=== PATIENT | female | born 1935 | race Caucasian/White ===

== ENCOUNTER 2019-12-17 14:04 | Outpatient (CLI) | payer MEDICARE, SELFPAY ==
--- NOTE | ~2019-12-17 | CT_ITS ---
EXAMINATION: CT brain wo con DATE: 12/17/2019 14:21 INDICATION: Unsteady gait TECHNIQUE: Computed tomography (CT) of the head was performed without intravenous contrast. The mA wa s adjusted according to patient size. Iterative reconstruction technique was employed. Exam dose: 52 9.67 mGy-cm total exam DLP. 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 No interval new infarc t is noted. No intracranial mass lesion or hemorrhage, midline shift or mass effects. There is moderate cerebral volume loss consistent with patient age. No subdural or epidural hematoma. There are bilateral carotid siphon as well as vertebral and basilar artery calcifications. There is n onspecific diminished attenuation cerebral white matter, likely due to chronic small vessel ischemic changes. No subdural or epidural hematoma. There is some patchy soft tissue thickening of the ethmoid air cells bilaterally. The included parana evert sinuses and the mastoid air cells are normally developed and aerated otherwise. No fracture or bone destruction of the cranial vault. 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 Reviewed, dictated and finalized at location A. 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
== END 2019-12-17 14:05 | disposition home or self-care (01) ==
PROVIDERS: PCP Family Medicine; Visit Provider Family Medicine
DX: R26.81 Unsteadiness on feet (principal)
CPT/HCPCS: 70450

== ENCOUNTER 2020-02-04 07:16 | Emergency (ER) | payer MEDICARE, SELFPAY ==
--- NOTE | ~2020-02-04 | US_ITS ---
EXAMINATION: US venous doppler [facility] EXAM DATE: 02/04/2020 08:24 INDICATION: Left leg pain, numbness, tingling. TECHNIQUE: Multiple grayscale, color flow and Doppler images of the left lower extremity deep venous system were obtained and reviewed. Comparison is made to prior examination from 04/23/2011. FINDINGS: The left common femoral, femoral and profunda veins demonstrate normal color flow, respirat ory variation, augmentation and compressibility. Compressibility, color flow confirmed within the le ft popliteal, posterior tibial, peroneal, and greater saphenous veins. IMPRESSION: 1. No left lower extremity deep venous thrombosis. Reviewed, dictated and finalized at location [facility].
--- NOTE | ~2020-02-04 | US_ITS ---
EXAMINATION: US arterial ankle brachial ind EXAM DATE: 02/04/2020 08:24 INDICATION: Left leg pain, numbness, tingling. TECHNIQUE: Segmental pressures and plethysmographic and Doppler waveforms of the brachial and lower e xtremity arteries were obtained. There is no prior study for comparison. FINDINGS: Right and left brachial artery pressures of 157 mm Hg and 153 mm Hg, respectively, are concordant (no rmal difference <= 30 mmHg). RIGHT LEG: The ankle-brachial index (YAQUELIN) is 1.04 (normal >= 0.9-1). The great toe-brachial index (TBI) is 0.61 (normal >= 0.65). The lower extremity ratios, segmental pressure gradients as follows; Dorsalis pedis: 1.04 (164 mmHg). Posterior tibial: 0.92 (144 mmHg). (Normal gradients <= 20-30 mmHg between adjacent levels on the same leg or the same levels on the two legs). Arterial waveforms are biphasic. LEFT LEG: The ankle-brachial index (YAQUELIN) is 0.97 (normal >= 0.9-1). The great toe-brachial index (TBI) is 0.38 (normal >= 0.65). The lower extremity ratios, segmental pressure gradients as follows; Dorsalis pedis: 0.97 (153 mmHg). Posterior tibial: 0.96 (151 mmHg). (Normal gradients <= 20-30 mmHg between adjacent levels on the same leg or the same levels on the two legs). Arterial waveforms are diminished compared to contralateral side and only minimally biphasic. IMPRESSION: 1. Right ankle-brachial index 1.04, normal. 2. Left ankle-brachial index 0.97, normal. 3. Moderately decreased left toe brachial index with dampened waveform. Reviewed, dictated and finalized at location B.
[2020-02-04 07:25] VITALS: BP 143/83; PULSE 63; RESP 11; TEMP 36.6; O2SAT 100
--- NOTE | 2020-02-04 07:37 | ED.EXTPRO ---
HPI - Extremity Problem General Chief complaint: Extremity Problem,Nontraumatic Stated complaint: L leg pain Time Seen by Provider: 02/04/20 07:18 Source: patient Mode of arrival: ambulatory Limitations: no limitations History of Present Illness HPI Narrative: This patient is a 84 year old female who presents for evaluation of left leg pain. She states starting Saturday she developed burning pain to front of her left lower leg. She states this pain seems to occur when she walks, and she does not currently have the pain now. She is concerned about a blood clot as she has family history of blood clots. She has no history of DVT or PE. She denies leg swelling, chest pain, shortness of breath, dizziness, leg numbness or tingling. She has noticed that she is getting more varicose veins over past 1 month. Related Data Home Medications Medication Instructions Recorded Confirmed biotin 1,000 mcg chewable tablet 1,000 mcg PO DAILY 12/15/19 02/04/20 calcium carbonate 600 mg calcium 600 mg PO DAILY 12/15/19 02/04/20 (1,500 mg) tablet Allergies Allergy/AdvReac Type Severity Reaction Status Date / Time chlorpheniramine Allergy Unknown Unknown Verified 02/04/20 07:37 dexchlorpheniramine Allergy Unknown Unknown Verified 02/04/20 07:37 hyoscyamine Allergy Unknown Unknown Verified 02/04/20 07:37 phenylephrine Allergy Unknown Unknown Verified 02/04/20 07:37 sulfamethizole Allergy Unknown Nausea and Verified 02/04/20 07:37 Vomiting aspartame AdvReac Unknown DIARRHEA/ Verified 02/04/20 07:37 UPSET STOMACH naproxen AdvReac Unknown DIARRHEA Verified 02/04/20 07:37 Review of Systems Review of Systems: All systems reviewed & are unremarkable except as noted in HPI and below Constitutional: Constitutional: Denies chills, Denies fever(s) and Denies weakness Cardiovascular: Cardiovascular: Denies chest pain Respiratory: Respiratory: Denies cough and Denies dyspnea Neurologic: Denies headache(s), Denies focal weakness, Denies numbness and Denies weakness PMFSH Past Medical History Medical History History of CVA (cerebrovascular accident) Hyperlipidemia Hypertension Hypothyroidism (acquired) Irritable bowel syndrome with diarrhea Osteopenia Varicose vein of leg Social History Social History Smoking status: Never smoker Second hand tobacco smoke exposure: No Alcohol intake: current Gender identity (if verbalized by the patient): Female Exam Narrative: Exam Narrative: GENERAL: Well-appearing, well-nourished, and in no acute distress. HEAD: Normocephalic, atraumatic EYES: PERRLA and EOMI, conjunctiva clear without discharge NECK: Supple, without lymphadenopathy or mass RESPIRATORY: No respiratory distress, Airway patent, EXTREMITIES: No edema, normal strength with full range of motion. SKIN: Warm, dry, normal color without rash NEURO: Alert and oriented x3. CN 2-12 grossly intact. No focal deficits. PSYCH: Normal mood and affect. Extrem: General: no pedal edema Right lower extremity: lower leg Details: other (varicose veins) Left lower extremity: lower leg Details: other (varicose veins); no erythema and no tenderness Other: palpable pedal pulse to right foot, strong signal doppler to pedal pulse on left but not palpable Course Reevaluation(s) Reevaluation #1: Patient has no pain. I Discussed she has some diminished blood flow to left foot compared to right so she should follow up with PCP for possible vascular referral or evaluation . Date: 02/04/20 Time: 09:04 Vital Signs Vital signs: Vital Signs Temperature 97.8 F 02/04/20 07:25 Pulse Rate 63 02/04/20 07:25 Respiratory Rate 11 L 02/04/20 07:25 Blood Pressure 143/83 H 02/04/20 07:25 Pulse Oximetry 100 02/04/20 07:25 Temperature 97.8 F 02/04/20 07:25 Pulse Rate 63 02/04/20 07:25 Respirator
== END 2020-02-04 09:32 | disposition home or self-care (01) ==
PROVIDERS: Emergency Provider General Practice; PCP Family Medicine
DX: M79.662 Pain in left lower leg (principal); I73.9 Peripheral vascular disease, unspecified; Z86.73 Personal history of transient ischemic attack (TIA), and cerebral infarction without residual deficits; E78.5 Hyperlipidemia, unspecified; I10 Essential (primary) hypertension; E03.9 Hypothyroidism, unspecified; K58.0 Irritable bowel syndrome with diarrhea; M85.80 Other specified disorders of bone density and structure, unspecified site
CPT/HCPCS: 93922; 93971; 99284

== ENCOUNTER 2020-07-14 10:02 | Outpatient (CLI) | payer MEDICARE, SELFPAY ==
--- NOTE | ~2020-07-14 | DEXA_ITS ---
Bone Density Report Name: Maribel Fink Age: 85 Sex: Female Ethnicity: White Date of : 1935 Indication: osteopenia; parental hip fracture; prior fracture; Referring Provider: Remedios Ruiz Study: Bone densitometry was performed. Exam Date: July 14, 2020 Accession number: [id number] Bone Density: Region BMD T-score Z-score Classification AP Spine (L1-L4) 0.934 -1.0 1.8 Normal Femoral Neck (Left) 0.645 -1.8 0.6 Osteopenia Total Hip (Left) 0.796 -1.2 1.0 Osteopenia Total Hip Bilateral Avg 0.808 -1.1 1.1 Osteopenia Femoral Neck (Right) 0.663 -1.7 0.8 Osteopenia Total Hip (Right) 0.818 -1.0 1.2 Normal World Health Organization criteria for BMD impression classify patients as: Normal (T-score at or above -1.0), Osteopenia (T-score between -1.0 and -2.5), or Osteoporosis (T-score at or below -2.5). 10-year Fracture Risk(1): Major Osteoporotic Fracture 35% Hip Fracture 22% Reported Risk Factors: [place] (), Neck BMD=0.645, BMI=23.4, previous fracture, parental fracture (1) FRAX(R) Version 3.08. Fracture probability calculated for an untreated patient. Fracture probability may be lower if the patient has received treatment. Previous Exams: Region Exam Age BMD T-score BMD Change BMD Change Date g/cm2 vs Baseline vs Previous AP Spine(L1-L4) 07/14/2020 85 0.934 -1.0 -0.005(-0.5%)# 0.012(1.3%) 11/21/2016 81 0.922 -1.1 -0.017(-1.8%)# -0.017(-1.8%)# 09/02/2009 74 0.939 -1.0 Total Hip(Left) 07/14/2020 85 0.796 -1.2 -0.023(-2.8%)# -0.029(-3.5%)* 11/21/2016 81 0.825 -1.0 0.006(0.8%)# 0.006(0.8%)# 09/02/2009 74 0.819 -1.0 Total Hip(Right) 07/14/2020 85 0.818 -1.0 -0.035(-4.1%)# -0.030(-3.5%)* 11/21/2016 81 0.848 -0.8 -0.005(-0.6%)# -0.005(-0.6%)# 09/02/2009 74 0.853 -0.7 *Denotes significance at 95% confidence level, LSC for AP Spine = 0.022 g/cm2, LSC for Total Hip = 0.027 g/cm2 Clinical Information Provided by Patient: Has had a low trauma fracture Parent has had a hip fracture Has used the following medications: HRT (i.e. estrogen/hormone therapy), Vitamin D, Calcium Patient maximum height was 60.0 Onset of menses at age 14 Number of children 2 Impression: The patient has low bone mass, based on the Left Femoral Neck T-score. The patient has an estimated ten-year risk of hip fracture of 22% and an estimated ten-year risk of major fracture of 35%, based on the WHO FRA
== END 2020-07-14 10:03 | disposition home or self-care (01) ==
LOC: ANHIMG 10:04
PROVIDERS: PCP Family Medicine; Visit Provider Family Medicine
DX: Z78.0 Asymptomatic menopausal state (principal); M85.852 Other specified disorders of bone density and structure, left thigh; M85.851 Other specified disorders of bone density and structure, right thigh
CPT/HCPCS: 77080

== ENCOUNTER 2021-02-01 11:55 | Observation (INO) | payer MEDICARE, SELFPAY ==
[2021-02-01] VITALS (12 sets, daily range): BP systolic 111–146; BP diastolic 48–93; PULSE 53–104; RESP 16–18; TEMP 36.1–36.7; O2SAT 97–100; BMI 20.4
--- NOTE | ~2021-02-01 | US_ITS ---
EXAMINATION: US abdomen limited DATE: 02/02/2021 09:09 INDICATION: Epigastric pain. Abnormal liver function tests. TECHNIQUE: Multiple grayscale and Doppler ultrasound images of the abdomen were obtained. COMPARISON: None FINDINGS: The visualized portions of the head, body, and tail of the pancreas are normal. The liver i s normal without focal lesion. No liver surface nodularity. There is normal flow in main portal vein. The gallbladder is normal in size. No gallstones or gallbladder wall thickening. There was no sonogr aphic Gay sign. The common duct is normal and measures 4 mm. IMPRESSION: 1. Normal right upper quadrant ultrasound. Reviewed, dictated and finalized at location A.
--- NOTE | ~2021-02-01 | XR_ITS ---
EXAMINATION: XR chest 2V DATE: 02/01/2021 12:31 INDICATION: Chest pain. Shortness of breath. TECHNIQUE: Frontal and lateral views of the chest were obtained. COMPARISON: Chest 2 views 03/02/2007 FINDINGS: A calcified left lung nodule is consistent with old granulomatous disease. No pleural effus ion or pneumothorax. The heart size is normal. IMPRESSION: 1. No acute cardiopulmonary disease. Reviewed, dictated and finalized at location A.
--- NOTE | 2021-02-01 12:03 | ECG_ITS ---
Measurements Intervals [place] Rate: 57 P: 56 [place]: 140 QRS: 55 QRSD: 81 T: 48 QT: 427 QTc: 419 Interpretive Statements SINUS BRADYCARDIA BORDERLINE ST ABNORMALITY- ANTEROLAT/INF LEADS BORDERLINE ECG Electronically Signed On 02-01-2021 12:19:55 CDT by Skyler Dia D.O.
[2021-02-01 12:30] LABS: Basophils Percent Auto 0.2 % (0.2-1.2); Eosinophils Absolute Auto 0.1 K/mm3 (0-0.3); Eosinophils Percent Auto 1.5 % (0-4.4); Hematocrit 47.1 % (37.0-47.0); Hemoglobin 15.3 g/dL (12.0-15.0); Immature Granulocyte Absolute 0.02 K/mm3 (0.00-0.031); Immature Granulocyte Percent A 0.2 % (0-0.5); Lymphocytes Absolute Auto 2.54 K/mm3 (0.9-3.2); Lymphocytes Percent Auto 31.3 % (18.3-44.2); Mean Corpuscular HGB Conc 32.5 g/dl (32-36); Mean Corpuscular Hemoglobin 30.5 pg (26-34); Mean Corpuscular Volume 93.8 fl (80-100); Mean Platelet Volume 9.7 fl (7.4-10.4); Monocytes Absolute Auto 0.7 K/mm3 (0.1-0.6); Neutrophils Absolute Auto 4.8 K/mm3 (1.3-6.7); Neutrophils Percent Auto 58.8 % (45.5-73.1); Platelet Count Result 272 k/mm3 (150-375); Red Blood Count 5.02 M/mm3 (4.2-5.4); Red Cell Distribution Width 12.1 % (11.5-14.5); White Blood Count 8.1 K/mm3 (4.5-10.0)
[2021-02-01 12:43] LABS: Anion Gap 8 mmol/L (8-16); Blood Urea Nitrogen 12 mg/dL (7-17); Calcium 10.3 mg/dL (8.4-10.2); Carbon Dioxide 34 mmol/L (22-30); Chloride 93 mmol/L (98-107); Estimated CRCL calculation 30 ml/min; Estimated Glomerular Filt Rate 60; Glucose 86 mg/dL (65-105); INR 0.9; Potassium 3.9 mmol/L (3.4-5.0); Prothrombin Time 12.2 Seconds (11.1-14.7); Sodium 135 mmol/L (137-145)
--- NOTE | 2021-02-01 12:45 | ECG_ITS ---
Measurements Intervals [place] Rate: 53 P: 54 [place]: 138 QRS: 42 QRSD: 80 T: 35 QT: 445 QTc: 418 Interpretive Statements SINUS BRADYCARDIA NONSPECIFIC ST & T-WAVE ABNORMALITY- ANTEROLAT/INF LEADS BASELINE ARTIFACT- V1-V3 BORDERLINE ECG Electronically Signed On 02-01-2021 13:03:24 CDT by Skyler Dia D.O.
--- NOTE | 2021-02-01 12:46 | ED.CHESTPAIN ---
HPI - Chest Pain General Chief Complaint: Chest Pain Stated Complaint: CP, SOB, L arm pain Time Seen by Provider: 02/01/21 12:41 Source: RN notes reviewed History of Present Illness HPI narrative: Patient presents emergency department from home for chest pain. Patient states for the past 4 days she has been having intermittent episodes of aching in her bilateral shoulders and upper arms states the first episode happened when she was out for a walk states the second episode happened the next day when she is sitting at home watching television and had another episode the next day states that this morning she was driving home when she had some aching in her left arm and some feeling of indigestion she gone to her PCPs office where an EKG was done and sent to the ED for further evaluation patient denies any current chest pain or arm pain she denies any fevers or chills nausea vomiting or any other symptoms states she has no previous cardiac history Related Data Home Medications Medication Instructions Recorded Confirmed calcium carbonate 600 mg calcium 600 mg PO DAILY 12/15/19 02/01/21 (1,500 mg) tablet aspirin 81 mg tablet,delayed 81 mg PO DAILY 05/02/20 02/01/21 release multivitamin 1 tablet PO DAILY 05/02/20 02/01/21 magnesium oxide 400 mg PO BID tablet 08/11/20 02/01/21 Allergies Allergy/AdvReac Type Severity Reaction Status Date / Time chlorpheniramine Allergy Unknown Unknown Verified 02/01/21 12:47 dexchlorpheniramine Allergy Unknown Unknown Verified 02/01/21 12:47 hyoscyamine Allergy Unknown Unknown Verified 02/01/21 12:47 phenylephrine Allergy Unknown Unknown Verified 02/01/21 12:47 sulfamethizole Allergy Unknown Nausea and Verified 02/01/21 12:47 Vomiting aspartame AdvReac Unknown DIARRHEA/ Verified 02/01/21 12:47 UPSET STOMACH naproxen AdvReac Unknown DIARRHEA Verified 02/01/21 12:47 Review of Systems Review of Systems: Narrative: Gen.: Denies fevers or chills ENT: Denies congestion Respiratory: Reports shortness of breath CV: See HPI GI: Denies abdominal pain nausea, emesis or diarrhea Musculoskeletal: Denies back pain or muscle pain Neuro: Denies numbness, tingling, weakness or focal weakness Skin: Denies rash Except as documented, all other systems reviewed and negative PMFSH Past Medical History Medical History Chronic mid back pain History of CVA (cerebrovascular accident) Hyperlipidemia Hypertension Hypokalemia Hypomagnesemia Hypothyroidism (acquired) Irritable bowel syndrome with diarrhea Osteopenia Vaginal dryness, menopausal Varicose vein of leg Surgical History Surgical History Hx of cervical polypectomy 1975 Family History Family History Father Hypertension Sibling Family history of malignant neoplasm of breast in first degree relative Other Family history of malignant neoplasm of breast Social History Social History Smoking status: Never smoker Second hand tobacco smoke exposure: No Alcohol intake: current Gender identity (if verbalized by the patient): Female Exam Narrative: Exam Narrative: APPEARANCE: No acute distress, nontoxic, resting in bed EYES: EOMI HEENT: Normocephalic, atraumatic, OMM RESPIRATORY: No respiratory distress Clear to auscultation bilaterally with no rhonchi wheezing or rales. CARDIOVASCULAR: Regular rate and rhythm without murmurs rubs or gallops. ABDOMINAL: Soft, nontender, nondistended, no rebound or guarding MUSCULOSKELETAl: Moves all extremities. No clubbing, cyanosis or edema. NEURO: Awake and alert. Following commands, speech normal, no focal deficits SKIN:: Warm, dry. No rashes lesions or abrasions PSYCHIATRIC: Normal affect/mood, Course Course Emergency Course: Discussed with JANE Mcadams for Dr. Mckeon
[2021-02-01 12:54] LABS: Troponin I < 0.012 ng/mL (0.000-0.034)
[2021-02-01] MEDS: ASPIRIN 81 MG CHEWABLE TABLET 324 MG PO (13:06)
[2021-02-01 13:31] LABS: Alanine Aminotransferase 31 U/L (4-35); Albumin Level 4.7 g/dL (3.5-5.1); Alkaline Phosphatase 93 U/L (38-126); Aspartate Amino Transferase 59 U/L (14-36); Bilirubin,Total 0.6 mg/dL (0.2-1.3); Lipase 309 U/L (23-300)
--- NOTE | 2021-02-01 14:48 | ADMGEN ---
This patient, Maribel Fink, was admitted to IMU Room 200-01. Patient/family oriented to hospital policies and general routines including ID bracelet, bed and alarms, visiting hours, pain management, procedures, bathroom and other care routines, personal items, smoking policy, room service/diet, and visiting hours. Information on how to activate the Rapid Response Team has been discussed. Patient/Family are encouraged to report perceived risks to care and to ask questions if they do not understand what they are told or what they should do.
[2021-02-01 15:58] LABS: Troponin I 0.012 ng/mL (0.000-0.034)
--- NOTE | 2021-02-01 16:17 | PM.CNCAR ---
Assessment and Plan Assessment and plan (1) Chest pain: Code(s): R07.9 - Chest pain, unspecified <LORETA Gaines - Last Filed: 02/01/21 16:33> Status: Inactive <LORETA Gaines - Last Filed: 02/01/21 16:33> Assessment and Plan: Episode of chest pain today that has some characteristics that are concerning for ischemia. Subtle ST depressions on EKG taken in the emergency department earlier. Troponin negative x2. She has no cardiac history and no prior stress testing has ever been performed. However,due to the presence of several risk factors we will pursue a ischemic evaluation with a nuclear stress test tomorrow. <LORETA Gaines - Last Filed: 02/01/21 16:33> (2) Hyperlipidemia: Qualifiers: Hyperlipidemia type: unspecified Qualified Code(s): E78.5 - Hyperlipidemia, unspecified <LORETA Gaines - Last Filed: 02/01/21 16:33> Code(s): E78.5 - Hyperlipidemia, unspecified <LORETA Gaines - Last Filed: 02/01/21 16:33> Status: Acute <LORETA Gaines - Last Filed: 02/01/21 16:33> Assessment and Plan: on statin. <LORETA Gaines - Last Filed: 02/01/21 16:33> (3) Hypertension: Qualifiers: Hypertension type: unspecified Qualified Code(s): I10 - Essential (primary) hypertension <LORETA Gaines - Last Filed: 02/01/21 16:33> Code(s): I10 - Essential (primary) hypertension <LORETA Gaines - Last Filed: 02/01/21 16:33> Status: Acute <LORETA Gaines - Last Filed: 02/01/21 16:33> Assessment and Plan: Blood pressure is at goal. <LORETA Gaines - Last Filed: 02/01/21 16:33> History of Present Illness History of Present Illness Consult date/time: 02/01/21 16:17 <LORETA Gaines - Last Filed: 02/01/21 16:33> Requesting physician: Denzel Cheng DO <LORETA Gaines - Last Filed: 02/01/21 16:33> Consult reason: chest pain <LORETA Gaines - Last Filed: 02/01/21 16:33> Reason For Visit: chest pain <LORETA Gaines - Last Filed: 02/01/21 16:33> Narrative: date of service 02/01/2021: Cardiology consultation for chest pain This is an 85-year-old female who I am seeing at the request of Dr. Cheng for our opinion recommendations on her chest pain. She has a past medical history of hypertension, hyperlipidemia, CVA ( 12 years ago) With no residual. She presented to the emergency department today after an episode of chest pain. She tells me that about 4 days ago she began experiencing some heaviness in her arms as she was taking her daily walk. She says that the heavy sensation subsided when she was finished with her walk. She states the next couple of nights that she was sitting on the couch watching TV she had the same sensation. These episodes resolved spontaneously. Today, while she was driving she is experience heaviness and pain in her left arm that radiated to her jaw and left shoulder. She also had associated diaphoresis, nausea, shortness of breath with this episode. Due to these symptoms, she decided to stop in her primary care doctor's office that happened to be on the route that she was driving. According to the patient, when she laid down on the exam table at her primary doctor's office her symptoms subsided. She had an EKG performed at by her primary care doctor who then advised her to proceed to the emergency department which she did. In the emergency department here, she had 2 EKGs that showed minimal ST depression in leads V5 and V6. First troponin that was drawn was negative. Currently, she is not experiencing any chest pain. 2nd troponin is pending. <LORETA Gaines - Last Filed: 02/01/21 16:33> Review of Systems Review of Systems: All systems reviewed & are unremarkable except as noted in HPI and below <Radha Huang, KELLIE-Roro - Santos F
[2021-02-01 18:54] LABS: Troponin I 0.019 ng/mL (0.000-0.034)
--- NOTE | 2021-02-01 20:00 | PM.IMHP ---
H&P: HPI History of Present Illness Date/Time: 02/01/21 20:00 Chief Complaint: Abnormal EKG. Narrative: This is a very pleasant 85-year-old female with history of stroke, hypertension, hyperlipidemia, and hypothyroidism who presented to the emergency department earlier today via EMS from her primary care provider's office for evaluation after she was found to have an abnormal EKG. Four days ago when she was out walking she developed and aching discomfort in both of her arms and reports that they felt a bit heavy. At that time she was also mildly short of breath and her symptoms resolved once her walk ended and she got home. She has had similar symptoms occur intermittently since that time, not necessarily with activity, and in fact she has had several episodes of epigastric discomfort associated with nausea within an hour so eating as well. While she was out shopping the heaviness in aching in her arms reoccurred and she decided to go see her primary care provider. EKG done in office showed some mild ST depression and she was sent to the emergency department where she has had 2 negative troponins thus far. At the time my evaluation she has no active symptoms or complaints. She specifically denies fever, chills, sweats, vomiting, palpitations, racing heart, pleuritic pain, orthopnea, PND, and edema. No significant GERD symptoms or history of gallbladder disease, pancreatitis, or peptic ulcers. Review of Systems Review of Systems: Narrative: Twelve systems were reviewed with pertinent positives and negatives as per HPI. Except as documented, all other systems were reviewed and are negative. [facility] Past Medical History Medical History (Updated 02/01/21 @ 22:52 by Lurdes Law PA-C) Cerebrovascular accident (~2006) Chronic mid back pain Hyperlipidemia Hypertension Hypothyroidism Irritable bowel syndrome with diarrhea Osteopenia Varicose vein of leg Surgical History Surgical History (Updated 02/01/21 @ 22:49 by Lurdes Law PA-C) History of bilateral cataract extraction History of cervical polypectomy History of tonsillectomy Family History Family History Father Hypertension Cerebrovascular accident Sibling Family history of malignant neoplasm of breast in first degree relative Social History Social History (Updated 02/01/21 @ 22:49 by Lurdes Law PA-C) Social History: The patient lives in [place] with her . She has 2 children, 1 who in a motor vehicle accident. No alcohol, tobacco, or illicit substance abuse. She designates her , Jason Fink, as her surrogate decision maker. Code status: Full code. Meds Home Medications and Allergies Home Medications Medication Instructions Recorded Confirmed Type calcium carbonate 600 mg calcium See Rx Instructions .ROUTE .COMPLEX 12/15/19 02/01/21 History (1,500 mg) tablet aspirin 81 mg tablet,delayed 81 mg PO DAILY 05/02/20 02/01/21 History release multivitamin 1 tablet PO 1200 05/02/20 02/01/21 History magnesium oxide 400 mg PO Q12H tablet 08/11/20 02/01/21 History levothyroxine 50 mcg tablet 50 mcg PO .COMPLEX #90 tablet 10/03/20 02/01/21 Rx levothyroxine 75 mcg tablet See Rx Instructions .ROUTE 10/03/20 02/01/21 Rx .COMPLEX #38 tablet conjugated estrogens 0.625 mg/gram 0.625 mg VAGINAL 2XW #30 gm 12/13/20 02/01/21 Rx vaginal cream atenolol-chlorthalidone 1 tablet PO HS 02/01/21 02/01/21 History clopidogrel [Plavix] 75 mg PO HS 02/01/21 02/01/21 History potassium chloride 20 meq PO 1200 02/01/21 02/01/21 History pravastatin 40 mg PO HS 02/01/21 02/01/21 History Allergies Allergy/AdvReac Type Severity Reaction Status Date / Time sulfamethizole Allergy Unknown Nausea and Verified 02/01/21 12:47 Vomiting aspartame AdvReac Unknown DIARRHEA/ Verified 02/01/21 12:47 UPSET STOMACH chlorpheniramine AdvReac Unknown Nausea and Verified 02/01
--- NOTE | 2021-02-01 20:16 | PC.NURSE ---
Medications noted at bedside in weekly pill box. Patient denies taking home medications. Encouraged not to take - patient agreed.
[2021-02-01] MEDS: SODIUM CHLORIDE 0.9% IV 1,000 ML 100 ML IV CONT (23:38)
--- NOTE | 2021-02-01 23:58 | ECG_ITS ---
Measurements Intervals [place] Rate: 63 P: 52 [place]: 139 QRS: 56 QRSD: 86 T: 51 QT: 416 QTc: 427 Interpretive Statements SINUS RHYTHM ST-T WAVE ABNORMALITY IN ANTEROLATERAL LEADS- CONSIDER ISCHEMIA ABNORMAL ECG Electronically Signed On 02-02-2021 11:31:26 CDT by Skyler Dia D.O.
[2021-02-02] VITALS (27 sets, daily range): BP systolic 115–152; BP diastolic 40–82; PULSE 49–74; RESP 13–20; TEMP 35.7–36.8; O2SAT 95–100
--- NOTE | 2021-02-02 00:08 | ECG_ITS ---
Measurements Intervals [place] Rate: 52 P: 46 [place]: 142 QRS: 48 QRSD: 83 T: 46 QT: 480 QTc: 450 Interpretive Statements SINUS BRADYCARDIA WITH SINUS ARRHYTHMIA T WAVE ABNORMALITY IN ANTERIOR LEADS- CONSDIER ISCHEMIA ABNORMAL ECG Electronically Signed On 02-02-2021 9:08:19 CDT by Skyler Dia D.O.
--- NOTE | 2021-02-02 00:14 | PC.NURSE ---
5770 patient up to bathroom. Following activity patient c/o left arm aching it feels like a blood pressure cuff going on and off rated pain 4-5/10 oxygen 2L/nc applied, EKG obtained, NUZHAT Acevedo telephoned.
--- NOTE | 2021-02-02 00:16 | PC.NURSE ---
0005 nitroglycerin 0.4mg administered SL. 0010 denies pain at this time.
[2021-02-02] MEDS: PRAVASTATIN SODIUM 20 MG TABLET 40 MG PO ×2 (01:15→20:39)
[2021-02-02] MEDS: CLOPIDOGREL BISULFATE 75 MG TABLET PO ×2 (01:16→20:39)
[2021-02-02] MEDS: atenoloL 50 MG TABLET PO ×2 (01:16→20:40)
[2021-02-02 01:35] LABS: Troponin I 0.028 ng/mL (0.000-0.034)
[2021-02-02 05:08] LABS: Basophils Percent Auto 0.5 % (0.2-1.2); Eosinophils Absolute Auto 0.2 K/mm3 (0-0.3); Eosinophils Percent Auto 3.8 % (0-4.4); Hematocrit 37.7 % (37.0-47.0); Hemoglobin 12.9 g/dL (12.0-15.0); Immature Granulocyte Absolute 0.01 K/mm3 (0.00-0.031); Immature Granulocyte Percent A 0.2 % (0-0.5); Lymphocytes Absolute Auto 2.61 K/mm3 (0.9-3.2); Lymphocytes Percent Auto 41.8 % (18.3-44.2); Mean Corpuscular HGB Conc 34.2 g/dl (32-36); Mean Corpuscular Volume 90.6 fl (80-100); Mean Platelet Volume 9.9 fl (7.4-10.4); Monocytes Absolute Auto 0.6 K/mm3 (0.1-0.6); Neutrophils Absolute Auto 2.8 K/mm3 (1.3-6.7); Neutrophils Percent Auto 44.7 % (45.5-73.1); Platelet Count Result 248 k/mm3 (150-375); Red Blood Count 4.16 M/mm3 (4.2-5.4); Red Cell Distribution Width 11.9 % (11.5-14.5); White Blood Count 6.2 K/mm3 (4.5-10.0)
[2021-02-02 05:17] LABS: Anion Gap 4 mmol/L (8-16); Blood Urea Nitrogen 13 mg/dL (7-17); Calcium 9.4 mg/dL (8.4-10.2); Carbon Dioxide 31 mmol/L (22-30); Chloride 98 mmol/L (98-107); Estimated CRCL calculation 41 ml/min; Estimated Glomerular Filt Rate > 60; Glucose 85 mg/dL (65-105); Lipase 209 U/L (23-300); Magnesium 1.4 mg/dL (1.6-2.3); Potassium 3.4 mmol/L (3.4-5.0); Sodium 133 mmol/L (137-145)
[2021-02-02] MEDS: LEVOTHYROXINE SODIUM 75 MCG TABLET BY MOUTH (07:14)
--- NOTE | 2021-02-02 07:48 | PM.IMPN ---
Progress Note: A&P Assessment and Plan (1) Abnormal EKG: Code(s): R94.31 - Abnormal electrocardiogram [ECG] [EKG] Status: Acute Assessment and Plan: At her PCP office prior to admission Last 2 EKGs were: SINUS BRADYCARDIA WITH SINUS ARRHYTHMIA T WAVE ABNORMALITY IN ANTERIOR LEADS- CONSDER ISCHEMIA Monitoring Cardiac Enxymes and Trops. continuous telemetry monitoring sales representative livestock consulted VS Q 4hours (2) Arm heaviness: Code(s): R29.898 - Other symptoms and signs involving the musculoskeletal system Status: Acute Assessment and Plan: no complaints at this time prior to admission, after walking 1.5 miles, affected both sides conducting diagnostic studies to rule in or out cardiac causes or vascular cause (3) Epigastric discomfort: Code(s): R10.13 - Epigastric pain Status: Acute Assessment and Plan: no complaints at this time, nursing staff noted patient had epigastric discomfort and pressure earlier this morning ordered Protonix IV Q 24 hours sales representative livestock consulted and planning a cardiac catheterization today abdominal ultrasound completed and found normal lipase normal at 209, no nausea or vomiting no s/s or complaints of GERD and this discomfort was not after meals (4) Hypertension: Qualifiers: Hypertension type: unspecified Qualified Code(s): I10 - Essential (primary) hypertension Code(s): I10 - Essential (primary) hypertension Status: Acute Assessment and Plan: patient's hypertension has been well controlled heart rate 50-53, SBP 150/60 and 131/63 continuous telemetry monitoring denies headaches (5) Hyperlipidemia: Qualifiers: Hyperlipidemia type: unspecified Qualified Code(s): E78.5 - Hyperlipidemia, unspecified Code(s): E78.5 - Hyperlipidemia, unspecified Status: Acute Assessment and Plan: history of known PAD continue oral Plavix and pravastatin follow-up with sales representative livestock (6) Hypothyroidism: Code(s): E03.9 - Hypothyroidism, unspecified Status: Acute Assessment and Plan: TSH was slightly elevated at 7.8 changed levothyroxine dosing to 75 mcg daily patient will need to follow-up with PCP for repeat blood work in 6 weeks Additional Plan The patient presented to the emergency department today from her primary care provider's office after she was found to have an abnormal EKG in the setting of bilateral upper extremity aching and heaviness associated with some mild shortness of breath. She has ruled out for acute coronary syndrome by serial troponins however given her symptoms and mild ST depression on EKG, she would probably benefit from [facility] cardiology consultation. She has also been having some epigastric discomfort and nausea, started IV Protonix. Subjective Date/time seen: 02/02/21 07:48 Maribel was feeling better today than she was at her admission. Ambulating within her hospital room, changing her own underwear independently, without chest pain at this time. She did have earlier chest pressure in the epigastric region and reported that to her nurse. Started IV Protonix today. While her troponins have been normal , they have also been slightly elevating, repeating serial cardiac enzymes this afternoon. Patient informed me that Cardiology was taking her for a cardiac catheterization instead of a stress test today. Prior to her admission she had been walking 1/2 miles every evening after dinner but for the last 3 days had been experiencing heavy achy bilateral arms after her walks. Then when she was driving she experienced left arm tightness and squeeze as well as left posterior shoulder blade sharp pain and nausea. She was near her PCP office and stopped in, they found her EKG to be abnormal and sent her to the hospital for evaluation. She states that she still has not feeling quite right. She admitted to having history of vascular disease including l
--- NOTE | 2021-02-02 07:57 | PC.NURSE ---
Called to patient's room with complaints of chest pressure and shortness of breath. Patient describes pain thinking that her telemetry box was still sitting on her chest while it was not. Applied supplemental O2 and obtained patient's vitals which were WNL. Patient's pain quickly resolved. Will continue to monitor.
[2021-02-02] MEDS: MAGNESIUM OXIDE 400 MG TABLET PO ×2 (09:00→20:40)
[2021-02-02] MEDS: ASPIRIN 81 MG ENTERIC TABLET PO (09:00)
[2021-02-02 09:06] LABS: Troponin I 0.032 ng/mL (0.000-0.034)
[2021-02-02 10:46] LABS: Creatine Kinase MB 0.9 ng/mL (0.0-2.37)
[2021-02-02 10:47] LABS: Creatine Kinase 42 U/L (30-135)
--- NOTE | 2021-02-02 11:00 | P.SEDATION_ITS ---
Moderate Sedation Note-Pt Data Patient Data Allergies Allergy/AdvReac Type Severity Reaction Status Date / Time sulfamethizole Allergy Unknown Nausea and Verified 02/01/21 12:47 Vomiting aspartame AdvReac Unknown DIARRHEA/ Verified 02/01/21 12:47 UPSET STOMACH chlorpheniramine AdvReac Unknown Nausea and Verified 02/01/21 14:58 Vomiting dexchlorpheniramine AdvReac Unknown Nausea and Verified 02/01/21 14:58 Vomiting hyoscyamine AdvReac Unknown Nausea and Verified 02/01/21 14:58 Vomiting naproxen AdvReac Unknown DIARRHEA Verified 02/01/21 12:47 phenylephrine AdvReac Unknown Nausea and Verified 02/01/21 14:58 Vomiting Home Medications Medication Instructions Recorded Confirmed Type calcium carbonate 600 mg calcium See Rx Instructions .ROUTE .COMPLEX 12/15/19 02/01/21 History (1,500 mg) tablet aspirin 81 mg tablet,delayed 81 mg PO DAILY 05/02/20 02/01/21 History release multivitamin 1 tablet PO 1200 05/02/20 02/01/21 History magnesium oxide 400 mg PO Q12H tablet 08/11/20 02/01/21 History levothyroxine 50 mcg tablet 50 mcg PO .COMPLEX #90 tablet 10/03/20 02/01/21 Rx levothyroxine 75 mcg tablet See Rx Instructions .ROUTE 10/03/20 02/01/21 Rx .COMPLEX #38 tablet conjugated estrogens 0.625 mg/gram 0.625 mg VAGINAL 2XW #30 gm 12/13/20 02/01/21 Rx vaginal cream atenolol-chlorthalidone 1 tablet PO HS 02/01/21 02/01/21 History clopidogrel [Plavix] 75 mg PO HS 02/01/21 02/01/21 History potassium chloride 20 meq PO 1200 02/01/21 02/01/21 History pravastatin 40 mg PO HS 02/01/21 02/01/21 History Current Medications: Active Medications Aspirin (Aspirin 81 Mg Enteric Tablet) 81 mg PO DAILY [facility] Last Admin: 02/02/21 09:00 Dose: 81 mg Documented by: Atenolol (Atenolol 50 Mg Tablet) 50 mg PO [facility] Last Admin: 02/02/21 01:16 Dose: 50 mg Documented by: Calcium Carbonate (Calcium Carbonate (Oscal) 500 Mg Tablet) 500 mg PO 1200,2100 [facility] Chlorthalidone (Chlorthalidone 25 Mg Tablet) 25 mg PO HS [facility] Clopidogrel Bisulfate (Clopidogrel Bisulfate 75 Mg Tablet) 75 mg PO HS [facility] Last Admin: 02/02/21 01:16 Dose: 75 mg Documented by: Estrogens Conjugated (Estrogens, Conjugated Vaginal Cream 30 Gm) 1 applic VAGINAL WeSa [facility] Levothyroxine Sodium (Levothyroxine Sodium 75 Mcg Tablet) 75 mcg BY MOUTH DAILY@0630 [facility] Magnesium Oxide (Magnesium Oxide 400 Mg Tablet) 400 mg PO Q12HR [facility] Last Admin: 02/02/21 09:00 Dose: 400 mg Documented by: Multivitamins Therapeutic (Multivitamins Therapeutic Tab (*Bkc)) 1 tablet PO 1200 [facility] Nitroglycerin (Nitroglycerin Sl 0.4 Mg Tablet) 0.4 mg SUBLINGUAL Q5MIN PRN PRN Reason: Chest Pain Pantoprazole Sodium (Pantoprazole Sodium Iv 40 Mg Vial) 40 mg IV PUSH QAM [facility] Potassium Chloride (Potassium Chloride 20 Meq Tablet.Er) 20 meq PO 1200 [facility] Pravastatin Sodium (Pravastatin Sodium 20 Mg Tablet) 40 mg PO [facility] Last Admin: 02/02/21 01:15 Dose: 40 mg Documented by: Sedation/Anesthesia: No previous sedation/anesthesia problems (including family history). [facility] Past Medical History Medical History Cerebrovascular accident (~2006) Chronic mid back pain Hyperlipidemia Hypertension Hypothyroidism Irritable bowel syndrome with diarrhea Osteopenia Varico
--- NOTE | 2021-02-02 11:00 | WPDHPUPDATE1 ---
History and Physical Update Update Date/Time: 02/02/21 11 am History and Physical has been reviewed, including an updated exam of the patient. There are NO changes in the patient's condition. Risks, benefits, and alternatives have been discussed and questions answered. Patient agrees to proceed with procedure.
--- NOTE | 2021-02-02 11:00 | WPDMODSED ---
Moderate Sedation Note-Pt Data Patient Data Allergies Allergy/AdvReac Type Severity Reaction Status Date / Time sulfamethizole Allergy Unknown Nausea and Verified 02/01/21 12:47 Vomiting aspartame AdvReac Unknown DIARRHEA/ Verified 02/01/21 12:47 UPSET STOMACH chlorpheniramine AdvReac Unknown Nausea and Verified 02/01/21 14:58 Vomiting dexchlorpheniramine AdvReac Unknown Nausea and Verified 02/01/21 14:58 Vomiting hyoscyamine AdvReac Unknown Nausea and Verified 02/01/21 14:58 Vomiting naproxen AdvReac Unknown DIARRHEA Verified 02/01/21 12:47 phenylephrine AdvReac Unknown Nausea and Verified 02/01/21 14:58 Vomiting Home Medications Medication Instructions Recorded Confirmed Type calcium carbonate 600 mg calcium See Rx Instructions .ROUTE .COMPLEX 12/15/19 02/01/21 History (1,500 mg) tablet aspirin 81 mg tablet,delayed 81 mg PO DAILY 05/02/20 02/01/21 History release multivitamin 1 tablet PO 1200 05/02/20 02/01/21 History magnesium oxide 400 mg PO Q12H tablet 08/11/20 02/01/21 History levothyroxine 50 mcg tablet 50 mcg PO .COMPLEX #90 tablet 10/03/20 02/01/21 Rx levothyroxine 75 mcg tablet See Rx Instructions .ROUTE 10/03/20 02/01/21 Rx .COMPLEX #38 tablet conjugated estrogens 0.625 mg/gram 0.625 mg VAGINAL 2XW #30 gm 12/13/20 02/01/21 Rx vaginal cream atenolol-chlorthalidone 1 tablet PO HS 02/01/21 02/01/21 History clopidogrel [Plavix] 75 mg PO HS 02/01/21 02/01/21 History potassium chloride 20 meq PO 1200 02/01/21 02/01/21 History pravastatin 40 mg PO HS 02/01/21 02/01/21 History Current Medications: Active Medications Aspirin (Aspirin 81 Mg Enteric Tablet) 81 mg PO DAILY [facility] Last Admin: 02/02/21 09:00 Dose: 81 mg Documented by: Atenolol (Atenolol 50 Mg Tablet) 50 mg PO [facility] Last Admin: 02/02/21 01:16 Dose: 50 mg Documented by: Calcium Carbonate (Calcium Carbonate (Oscal) 500 Mg Tablet) 500 mg PO 1200,2100 [facility] Chlorthalidone (Chlorthalidone 25 Mg Tablet) 25 mg PO HS [facility] Clopidogrel Bisulfate (Clopidogrel Bisulfate 75 Mg Tablet) 75 mg PO [facility] Last Admin: 02/02/21 01:16 Dose: 75 mg Documented by: Estrogens Conjugated (Estrogens, Conjugated Vaginal Cream 30 Gm) 1 applic VAGINAL WeSa [facility] Levothyroxine Sodium (Levothyroxine Sodium 75 Mcg Tablet) 75 mcg BY MOUTH DAILY@0630 [facility] Magnesium Oxide (Magnesium Oxide 400 Mg Tablet) 400 mg PO Q12HR [facility] Last Admin: 02/02/21 09:00 Dose: 400 mg Documented by: Multivitamins Therapeutic (Multivitamins Therapeutic Tab (*Bkc)) 1 tablet PO 1200 [facility] Nitroglycerin (Nitroglycerin Sl 0.4 Mg Tablet) 0.4 mg SUBLINGUAL Q5MIN PRN PRN Reason: Chest Pain Pantoprazole Sodium (Pantoprazole Sodium Iv 40 Mg Vial) 40 mg IV PUSH QAM [facility] Potassium Chloride (Potassium Chloride 20 Meq Tablet.Er) 20 meq PO 1200 [facility] Pravastatin Sodium (Pravastatin Sodium 20 Mg Tablet) 40 mg PO [facility] Last Admin: 02/02/21 01:15 Dose: 40 mg Documented by: Sedation/Anesthesia: No previous sedation/anesthesia problems (including family history). [facility] Past Medical History Medical History Cerebrovascular accident (~2006) Chronic mid back pain Hyperlipidemia Hypertension Hypothyroidism Irritable bowel syndrome with diarrhea Osteopenia Varicose vein of leg Surgical History Surgical History History of bilateral cataract extraction History of cervical polypectomy History of tonsillectomy Family History Family History Father Hypertension Cerebrovascular accident Sibling Family history of malignant neoplasm of breast in first degree relative Social History Social History Social History: The patient lives in [place] with her . She has 2 children, 1 who in a motor vehicle accident. No alcohol, tobacco, or illic
[2021-02-02 11:35] LABS: Free T4 Free Thyroxine Reflex 1.32 ng/dL (0.78-2.19)
--- NOTE | 2021-02-02 12:28 | P.PCNCC_ITS ---
Cardiac Cath Procedure Note Date of procedure:: 02/02/21 Performing physician:: Yovana Friedman MD date of service February 02, 2021 Indication:: chest pain Brief clinical history:: This is a 85-year-old female with past history of hypertension, hypothyroidism who presents with chest pain concerning for unstable angina Procedure Procedure performed:: 1-Moderate sedation that started at 11:44 a.m. and ended at 12:20 p.m.using 1mg of Versed . The registered nurse was cuco rey. 2-Selective left and right coronary angiogram. 3-Left heart catheterization with measurement of LVEDP and measurement of gradient across aortic valve. 4-deployment of a drug-eluting stent orsiro 3x30 to mid LAD. 5-Right common femoral arterial angiogram. 6-Deployment of 6 [place]ic Angio-Seal. Sedation/Medication given:: Moderate sedation. Access site:: Right common femoral artery. Estimated blood loss:: 10cc Procedure note:: After informed consent patient was brought in to ammunition assembly ii laborer with the was draped and prepped in usual manner. Moderate sedation was given and the right groin was infiltrated using 1% lidocaine. Five Green[place]ic sheath was obtained using micropuncture needle and the modified Seldinger technique. Selective left coronary angiogram was done using JL4 catheter with the tip of the catheter placed in the left main coronary artery. Selective right coronary angiogram was done using JR4 catheter with the tip of the catheter placed to the right coronary artery. After that 5 Green[place]ic pigtail catheter was advanced across the aortic valve into the left ventricle with measurement of LVEDP and measurement of gradient across aortic valve. Right common femoral arterial angiogram was done. after that the 5 [place]ic sheath in the right groin was exchanged for 6 [place]ic sheath. A guide catheter CLS 3.5 was not successful to engage the left main. Then we took Q 4 guide catheter engaged the left main. Coronary luge wire 0.014 advanced to distal LAD. Balloon angioplasty of mid LAD was done using 3 x 15 balloon with inflation done and then low pressure for 25 seconds. deployed drug-eluting stent ORSIRO 3 x 30 to mid LAD and a normal pressure for 25 seconds. Post dilatation of the distal end of the stent was done using 3 x 15 noncompliant balloon under the pressure 25 seconds. Angio-Seal was deployed Findings:: 1- left coronary artery is a large artery that divides into large LAD, large circumflex artery. Left main is free of disease. 2- left anterior descending artery is a large artery that runs and wraps around the apex. Proximally 20% in the mid segment diffuse 50% followed by 90%. Small diagonal branch comes from the proximal edge of the lesion with ostial 90%. 3- leftcircumflex artery is a large artery It has minimal irregularities. 4- right coronary artery is Large artery dominant and free of disease. 5- LVEDP was 15 mmhg and no gradient across aortic valve. 6- opening arterial pressure was 160/70 and closing pressure was 130/80. 7- right femoral artery angiogram shows no significant disease in the right common femoral artery. Conclusion:: Successful stenting of mid LAD Assessment and Plan Additional Plan continue aggressive risk factor modification for CAD. Continue aspirin and Brilinta.
[2021-02-02 12:54] LABS: Total Triiodothyronine (T3) 0.98 NG/ML (0.97-1.69)
--- NOTE | 2021-02-02 13:00 | ECG_ITS ---
Measurements Intervals [place] Rate: 53 P: 77 [place]: 136 QRS: 70 QRSD: 78 T: 74 QT: 477 QTc: 450 Interpretive Statements SINUS BRADYCARDIA ATRIAL PREMATURE COMPLEX BORDERLINE ST-T WAVE ABNORMALITY- ANTEROLAT/INF LEADS BORDERLINE ECG Electronically Signed On 02-02-2021 14:25:38 CDT by Skyler Dia D.O.
--- NOTE | 2021-02-02 15:09 | SUR.PHASEII ---
1420 Dr. Friedman notified about R groin dressing with scant amount of drainage, dressing changed, site remains soft around pts R groin hernia. Keeping pt for additional 30minutes per Dr. Friedman to monitor R groin. IMU RN updated.
[2021-02-02] MEDS: SODIUM CHLORIDE 0.9% IV 1,000 ML 100 ML IV CONT (16:36)
[2021-02-02] MEDS: PANTOPRAZOLE SODIUM IV 40 MG VIAL IV PUSH (16:36)
[2021-02-02] MEDS: MAG HYDROX/AL HYDROX/SIMETH 30 ML UDC PO (16:43)
[2021-02-02] MEDS: ACETAMINOPHEN 325 MG TABLET 650 MG PO (20:38)
[2021-02-02] MEDS: CALCIUM CARBONATE (OSCAL) 500 MG TABLET PO (20:39)
[2021-02-03] VITALS (9 sets, daily range): BP systolic 107–128; BP diastolic 46–67; PULSE 54–101; RESP 15–18; TEMP 36.4–36.8; O2SAT 98–100
[2021-02-03 05:09] LABS: Hematocrit 35.1 % (37.0-47.0); Hemoglobin 11.9 g/dL (12.0-15.0); Mean Corpuscular HGB Conc 33.9 g/dl (32-36); Mean Corpuscular Hemoglobin 30.7 pg (26-34); Mean Corpuscular Volume 90.7 fl (80-100); Mean Platelet Volume 10.1 fl (7.4-10.4); Platelet Count Result 227 k/mm3 (150-375); Red Blood Count 3.87 M/mm3 (4.2-5.4); Red Cell Distribution Width 11.9 % (11.5-14.5); White Blood Count 9.5 K/mm3 (4.5-10.0)
[2021-02-03 05:31] LABS: NT Pro B Type Natriuretic Pept 4280 pg/mL (5-100)
[2021-02-03 05:32] LABS: Alanine Aminotransferase 22 U/L (4-35); Albumin Level 3.3 g/dL (3.5-5.1); Alkaline Phosphatase 54 U/L (38-126); Anion Gap 6 mmol/L (8-16); Aspartate Amino Transferase 77 U/L (14-36); Bilirubin,Total 0.6 mg/dL (0.2-1.3); Blood Urea Nitrogen 10 mg/dL (7-17); Calcium 8.9 mg/dL (8.4-10.2); Carbon Dioxide 28 mmol/L (22-30); Chloride 98 mmol/L (98-107); Estimated CRCL calculation 47 ml/min; Estimated Glomerular Filt Rate > 60; Glucose 91 mg/dL (65-105); Potassium 2.9 mmol/L (3.4-5.0); Sodium 132 mmol/L (137-145)
[2021-02-03] MEDS: LEVOTHYROXINE SODIUM 75 MCG TABLET BY MOUTH (06:12)
--- NOTE | 2021-02-03 07:00 | ECG_ITS ---
Measurements Intervals [place] Rate: 59 P: 79 ND: 150 QRS: 63 QRSD: 76 T: 70 QT: 478 QTc: 474 Interpretive Statements SINUS BRADYCARDIA ATRIAL COUPLET ST-T WAVE ABNORMALITY IN ANTERIOR LEADS- CONSIDER ISCHEMIA BASELINE ARTIFACT- I, II, AVR, AVL, AVF ABNORMAL ECG Electronically Signed On 02-03-2021 13:03:50 CDT by Skyler Dia D.O.
[2021-02-03] MEDS: MAGNESIUM OXIDE 400 MG TABLET PO (09:11)
[2021-02-03] MEDS: PANTOPRAZOLE SODIUM IV 40 MG VIAL IV PUSH (09:11)
[2021-02-03] MEDS: POTASSIUM CHLORIDE 20 MEQ TABLET 40 MEQ PO (09:11)
[2021-02-03] MEDS: ASPIRIN 81 MG ENTERIC TABLET PO (09:11)
[2021-02-03] MEDS: POTASSIUM CHLORIDE 20 MEQ TABLET.ER PO (13:03)
[2021-02-03] MEDS: MULTIVITAMINS THERAPEUTIC TAB (*BKC) 1 TABLET PO (13:03)
[2021-02-03] MEDS: CALCIUM CARBONATE (OSCAL) 500 MG TABLET PO (13:03)
--- NOTE | 2021-02-03 14:17 | PM.PNCARD ---
Progress Note: A&P Assessment and Plan (1) Chest pain: Code(s): R07.9 - Chest pain, unspecified Status: Acute Assessment and Plan: She was taken to the blood and plasma laboratory assistant yesterday for coronary angiogram. She was found to have a 90% occlusion to the mid LAD. She is status post placement of a drug-eluting stent orsiro 3x30 to mid LAD. Other angiographic findings are listed below: 1- left coronary artery is a large artery that divides into large LAD, large circumflex artery. Left main is free of disease. 2- left anterior descending artery is a large artery that runs and wraps around the apex. Proximally 20% in the mid segment diffuse 50% followed by 90%. Small diagonal branch comes from the proximal edge of the lesion with ostial 90%. 3- left circumflex artery is a large artery It has minimal irregularities. 4- right coronary artery is Large artery dominant and free of disease. 5- LVEDP was 15 mmhg and no gradient across aortic valve. 6- opening arterial pressure was 160/70 and closing pressure was 130/80. 7- right femoral artery angiogram shows no significant disease in the right common femoral artery. (2) Hyperlipidemia: Qualifiers: Hyperlipidemia type: unspecified Qualified Code(s): E78.5 - Hyperlipidemia, unspecified Code(s): E78.5 - Hyperlipidemia, unspecified Status: Acute Assessment and Plan: On statin. (3) Hypertension: Qualifiers: Hypertension type: unspecified Qualified Code(s): I10 - Essential (primary) hypertension Code(s): I10 - Essential (primary) hypertension Status: Acute Assessment and Plan: Blood pressure is at goal. Additional Plan Continue aggressive risk factor modification for CAD. Continue aspirin and Plavix. I will follow-up with her in the office in 3-4 weeks. Subjective Date/time seen: 02/03/21 14:17 Cardiology follow-up for chest pain Date of service 02/03/2021: Patient states she is feeling very well today status post PCI on 02/02/2021. She denies any further episodes of chest pain, arm pain, jaw pain. She denies any problems with her breathing. She states she slept well last night. She is eager to be discharged to home. Review of Systems Review of Systems: All systems reviewed & are unremarkable except as noted in HPI and below Constitutional: Constitutional: Denies body ache(s), Denies chills, Denies fatigue, Denies headache(s), Denies night sweats and Denies weakness Eyes: Eyes: Denies blurry vision and Denies loss of vision ENT: Reports Normal hearing present, Denies headache(s) and Denies tinnitus Cardiovascular: Cardiovascular: Denies chest pain, Denies diaphoresis, Denies pedal edema, Denies leg edema, Denies lightheadedness, Denies palpitations, Denies dyspnea and Denies dyspnea on exertion Respiratory: Respiratory: Denies dyspnea and Denies dyspnea on exertion Gastrointestinal: Gastrointestinal: Denies diarrhea, Denies nausea and Denies vomiting Genitourinary: Genitourinary: Denies urinary urgency Musculoskeletal: Musculoskeletal: Denies arthralgias and Denies joint swelling Integumentary/Breasts: Skin/Breast: Denies unusual bruising Neurologic: Reports Normal hearing present, Denies Abnormal speech present, Denies confusion, Denies headache(s), Denies loss of vision and Denies weakness Psychiatric: Psychiatric: Denies anxiety, Denies confusion and Denies depression Endocrine: Endocrine: Denies fatigue and Denies palpitations Hematologic/Lymphatic: Hematologic/Lymphatic: Denies easy bleeding and Denies easy bruising Allergic/Immunologic: Allergic/Immunologic: Denies GI upset with certain foods Exam Const: General: comfortable and no acute distress; No confusion Orientation/consciousness: No confusion HENMT: Head: normal to inspection Eyes: General: appearance normal, both eyes and all related structures Sclera: sclerae normal Pupils: Equal, round and reactive pupils present Ne
[2021-02-03 14:20] LABS: Anion Gap 6 mmol/L (8-16); Blood Urea Nitrogen 10 mg/dL (7-17); Calcium 9.2 mg/dL (8.4-10.2); Carbon Dioxide 30 mmol/L (22-30); Chloride 95 mmol/L (98-107); Estimated CRCL calculation 41 ml/min; Estimated Glomerular Filt Rate > 60; Glucose 140 mg/dL (65-105); Potassium 3.4 mmol/L (3.4-5.0); Sodium 131 mmol/L (137-145)
--- NOTE | 2021-02-03 14:52 | PM.DS ---
DS: Admitting Diagnosis Admitting Diagnosis Admitting Diagnosis: Epigastric Pressure/Pain DS: Discharge Diagnosis Discharge Diagnosis (1) Abnormal EKG: Code(s): R94.31 - Abnormal electrocardiogram [ECG] [EKG] Status: Acute Assessment and Plan: At her PCP office prior to admission Last 2 EKGs were: SINUS BRADYCARDIA WITH SINUS ARRHYTHMIA T WAVE ABNORMALITY IN ANTERIOR LEADS- CONSDER ISCHEMIA Monitoring Cardiac Enxymes and Trops. continuous telemetry monitoring edi specialist consulted VS Q 4hours See LAD plan below (2) Arm heaviness: Code(s): R29.898 - Other symptoms and signs involving the musculoskeletal system Status: Acute Assessment and Plan: no complaints at this time - completely resolved. prior to admission, after walking 1.5 miles, affected both sides conducting diagnostic studies to rule in or out cardiac causes or vascular cause (3) Epigastric discomfort: Code(s): R10.13 - Epigastric pain Status: Acute Assessment and Plan: no complaints at this time, nursing staff noted patient had epigastric discomfort and pressure earlier this morning protonix while in hospital edi specialist consulted and planning a cardiac catheterization today abdominal ultrasound completed and found normal lipase normal at 209, no nausea or vomiting no s/s or complaints of GERD and this discomfort was not after meals (4) Hypertension: Qualifiers: Hypertension type: unspecified Qualified Code(s): I10 - Essential (primary) hypertension Code(s): I10 - Essential (primary) hypertension Status: Acute Assessment and Plan: patient's hypertension has been well controlled heart rate and BP well controlled continuous telemetry monitoring denies headaches (5) Hyperlipidemia: Qualifiers: Hyperlipidemia type: unspecified Qualified Code(s): E78.5 - Hyperlipidemia, unspecified Code(s): E78.5 - Hyperlipidemia, unspecified Status: Acute Assessment and Plan: history of known PAD continue oral Plavix and pravastatin follow-up with edi specialist (6) Hypothyroidism: Code(s): E03.9 - Hypothyroidism, unspecified Status: Acute Assessment and Plan: TSH was slightly elevated at 7.8 changed levothyroxine dosing to 75 mcg daily patient will need to follow-up with PCP for repeat blood work in 6 weeks (7) 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 found to have a 90% occlusion to the mid LAD. now status post placement of a drug-eluting stent orsiro 3x30 to mid LAD. 1- left coronary artery is a large artery that divides into large LAD, large circumflex artery. Left main is free of disease. 2- left anterior descending artery is a large artery that runs and wraps around the apex. Proximally 20% in the mid segment diffuse 50% followed by 90%. Small diagonal branch comes from the proximal edge of the lesion with ostial 90%. 3- left circumflex artery is a large artery It has minimal irregularities. 4- right coronary artery is Large artery dominant and free of disease. 5- LVEDP was 15 mmhg and no gradient across aortic valve. 6- opening arterial pressure was 160/70 and closing pressure was 130/80. 7- right femoral artery angiogram shows no significant disease in the right common femoral artery. Continue statin. Blood pressure is at goal. Continue aspirin and Plavix. Asbestos Handler will follow-up with her in the office in 3-4 weeks DS: Summary Hospital Course Hospital Course: Patient having chest pain, intermittently, taken for cardiac catherization, mid LAD occlusion stented, no c/o pain today, K supplemented, patient to be discharged to home with F/U to
== END 2021-02-03 16:00 | disposition home or self-care (01) ==
LOC: ANHED 13:23 → ANHIMU 13:37
PROVIDERS: Emergency Medicine; Internal Medicine Cardiovascular Disease; Nurse Practitioner; Physician Assistant; Admitting Provider Internal Medicine; Emergency Provider Emergency Medicine; PCP Family Medicine; Visit Provider Internal Medicine
PROC: 4A023N7 Measurement of Cardiac Sampling and Pressure, Left Heart, Percutaneous Approach (ICD-10-PCS; CPT 93452; principal; 2021-02-02 10:30)
DX: I24.0 Acute coronary thrombosis not resulting in myocardial infarction (principal); R07.9 Chest pain, unspecified; R06.02 Shortness of breath; R94.31 Abnormal electrocardiogram [ECG] [EKG]; I10 Essential (primary) hypertension; E03.9 Hypothyroidism, unspecified; E78.5 Hyperlipidemia, unspecified; Z86.73 Personal history of transient ischemic attack (TIA), and cerebral infarction without residual deficits
CPT/HCPCS: 36415; 71046; 76705; 80048; 80053; 80076; 82550; 82553; 83690; 83735; 83880; 84439; 84443; 84480; 84484; 85025; 85027; 85610; 85730; 93005; 93458; 96361; 96374; 96376; 99285; A9270; C1725; C1760; C1769; C1874; C1887; C1894; C9113; C9600; G0269; G0378; J0583; J1644; J2250; J3010; J7030; J7040

== ENCOUNTER 2021-06-14 13:30 | Outpatient (RCR) | payer MEDICARE, SELFPAY ==
[2021-03-24 15:25] VITALS: BP 142/62; PULSE 62; RESP 16; O2SAT 100
[2021-03-24 15:31] VITALS: PULSE 62
== END 2021-06-14 16:53 | disposition home or self-care (01) ==
LOC: ANHCPREHAB 13:30
PROVIDERS: PCP Family Medicine; Visit Provider Nurse Practitioner
DX: Z95.5 Presence of coronary angioplasty implant and graft (principal)
CPT/HCPCS: 93798

== ENCOUNTER 2021-07-17 09:18 | Outpatient (CLI) | payer MEDICARE, SELFPAY ==
--- NOTE | ~2021-07-17 | MM_ITS ---
EXAMINATION: MM screening vladimir BI w jes HISTORY: Screening mammogram TECHNIQUE: Craniocaudal and mediolateral oblique 3-D tomosynthesis images were obtained and synthetic 2-D images were generated. CAD analysis was submitted and interpreted. COMPARISON: 07/22/2015, 04/26/2009 BREAST PARENCHYMAL COMPOSITION: The breasts are almost entirely fatty. FINDINGS: Scattered benign-appearing calcifications are present. There is no evidence of suspicious m ass, calcification, or architectural distortion to suggest malignancy in either breast. There has bee n no suspicious interval change. IMPRESSION: 1. No mammographic evidence of malignancy. 2. Recommend routine screening mammography while the patient remains in good health. BI-RADS Category 2: Benign finding(s). Reviewed, dictated and finalized at location A. ING MACHINE OPERATOR IMPRESSION: 1. No mammographic evidence of malignancy. 2. Recommend routine screening mammography while the patient remains in good he alth. BI-RADS Category 2: Benign finding(s).
== END 2021-07-17 09:19 | disposition home or self-care (01) ==
LOC: ANHIMG 09:19
PROVIDERS: PCP Family Medicine; Visit Provider Family Medicine
DX: Z12.31 Encounter for screening mammogram for malignant neoplasm of breast (principal)
CPT/HCPCS: 77063; 77067

== ENCOUNTER 2022-07-20 10:31 | Outpatient (CLI) | payer MEDICARE, SELFPAY ==
--- NOTE | ~2022-07-20 | MM_ITS ---
EXAMINATION: MM screening vladimir BI w jes HISTORY: Screening TECHNIQUE: Craniocaudal and mediolateral oblique 3-D tomosynthesis images were obtained and synthetic 2-D images were generated. CAD analysis was submitted and interpreted. COMPARISON: Comparison to multiple prior studies sequentially, with oldest reviewed study dated 07/05. BREAST PARENCHYMAL COMPOSITION: There are scattered areas of fibroglandular density. FINDINGS: There is no evidence of suspicious mass, calcification, or architectural distortion to sugg est malignancy in either breast. There has been no suspicious interval change. IMPRESSION: 1. No mammographic evidence of malignancy. 2. Recommend routine screening mammography in one year. BI-RADS Category 1: Negative Reviewed, dictated and finalized at location B. NDANT CAMPGROUND
--- NOTE | ~2022-07-20 | DEXA_ITS ---
Bone Density Report Name: CHEYENNE PATEL Age: 87 Sex: Female Ethnicity: White Date of : 1935 Indication: postmenopausal; screening for osteoporosis; parental hip fracture; Referring Provider: LOUIE RIBEIRO Study: Bone densitometry was performed. Exam Date: July 20, 2022 Accession number: [id number] Bone Density: Region BMD T-score Z-score Classification AP Spine(L1-L4) 0.943 -0.9 1.9 Normal Femoral Neck (Left) 0.640 -1.9 0.6 Osteopenia Total Hip (Left) 0.776 -1.4 1.0 Osteopenia Femoral Neck (Right) 0.663 -1.7 0.8 Osteopenia Total Hip (Right) 0.741 -1.6 0.7 Osteopenia Total Hip Mean 0.759 -1.5 0.9 Osteopenia World Health Organization criteria for BMD impression classify patients as: Normal (T-score at or above -1.0), Osteopenia (T-score between -1.0 and -2.5), or Osteoporosis (T-score at or below -2.5). 10-year Fracture Risk(1): Major Osteoporotic Fracture 27% Hip Fracture 18% Reported Risk Factors: [place] (), Neck BMD=0.640, BMI=24.2, parental fracture (1) FRAX(R) Version 3.08. Fracture probability calculated for an untreated patient. Fracture probability may be lower if the patient has received treatment. Clinical Information Provided by Patient: Parent has had a hip fracture Has used the following medications: HRT (i.e. estrogen/hormone therapy), Vitamin D, Calcium Patient maximum height was 60 Menopause Age: 52 Onset of menses at age 14 Number of children 2 Impression: The patient has low bone mass, based on the Left Femoral Neck T-score. The patient has an estimated ten-year risk of hip fracture of 18% and an estimated ten-year risk of major fracture of 27%, based on the WHO FRAX algorithm. The patient has risk factors, including: parental hip fracture. Discussion: BONE DENSITY IS LOW AT ONE OR MORE SKELETAL SITES. THE PATIENT'S BMD AND CLINICAL RISK FACTORS CONTRIBUTE TO THIS PATIENT'S HIGH RISK OF FRACTURE. This patient's lowest T-score is low at one or more skeletal sites. It meets the World Health Organization's (WHO) criteria for ?low bone mass? (T-score between -1.0 and -2.5). The patient's 10-year risk of hip fracture and 10 year risk of a major osteoporotic fracture as calculated by FRAX exceeds the threshold where pharmacological therapy is recommended by the National Osteoporosis Foundation (NOF). However, all treatment decisions require clinical judgment and consideration of individual patient factors, including patient preferences, comorbidities, previous drug use, risk factors not captured in the FRAX model (e.g., frailty, falls, vitamin D deficiency, increased bone turnover, interval significant decline in bone density) and possible under or overestimation of fracture risk by FRAX. The patient should follow a healthful lifestyle (good
== END 2022-07-20 10:32 | disposition home or self-care (01) ==
PROVIDERS: PCP Family Medicine; Visit Provider Nurse Practitioner Family
DX: Z12.31 Encounter for screening mammogram for malignant neoplasm of breast (principal); Z78.0 Asymptomatic menopausal state; M85.852 Other specified disorders of bone density and structure, left thigh; M85.851 Other specified disorders of bone density and structure, right thigh
CPT/HCPCS: 77063; 77067; 77080

== ENCOUNTER 2023-01-31 08:25 | Outpatient (CLI) | payer MEDICARE, SELFPAY ==
[2023-01-31 19:46] LABS: Basophils Percent Auto 0.6 % (0.2-1.2); Eosinophils Absolute Auto 0.1 K/mm3 (0-0.3); Eosinophils Percent Auto 1.4 % (0-4.4); Hematocrit 42.5 % (37.0-47.0); Hemoglobin 14.1 g/dL (12.0-15.0); Immature Granulocyte Absolute 0.02 K/mm3 (0.00-0.031); Immature Granulocyte Percent A 0.3 % (0-0.5); Lymphocytes Absolute Auto 2.37 K/mm3 (0.9-3.2); Lymphocytes Percent Auto 32.7 % (18.3-44.2); Mean Corpuscular HGB Conc 33.2 g/dl (32-36); Mean Corpuscular Hemoglobin 30.7 pg (26-34); Mean Corpuscular Volume 92.6 fl (80-100); Mean Platelet Volume 9.9 fl (7.4-10.4); Monocytes Absolute Auto 0.6 K/mm3 (0.1-0.6); Monocytes Percent Auto 8.6 % (2.6-8.5); Neutrophils Absolute Auto 4.1 K/mm3 (1.3-6.7); Neutrophils Percent Auto 56.4 % (45.5-73.1); Platelet Count Result 287 k/mm3 (150-375); Red Blood Count 4.59 M/mm3 (4.2-5.4); Red Cell Distribution Width 11.9 % (11.5-14.5); White Blood Count 7.3 K/mm3 (4.5-10.0)
[2023-01-31 20:08] LABS: Alanine Aminotransferase 27 U/L (6-35); Albumin Level 4.2 g/dL (3.5-5.1); Alkaline Phosphatase 88 U/L (38-126); Anion Gap 3 mmol/L (8-16); Aspartate Amino Transferase 82 U/L (14-36); Bilirubin,Total 0.7 mg/dL (0.2-1.3); Blood Urea Nitrogen 13 mg/dL (7-17); Calcium 9.2 mg/dL (8.4-10.2); Carbon Dioxide 37 mmol/L (22-30); Chloride 89 mmol/L (98-107); Estimated Glomerular Filt Rate > 60; Glucose 83 mg/dL (65-110); Potassium 3.3 mmol/L (3.4-5.0); Sodium 129 mmol/L (137-145)
[2023-01-31 20:10] LABS: Parathyroid Intact 43.9 pg/mL (7.5-53.5)
[2023-01-31 20:39] LABS: Cholesterol 156 mg/dL (0-200); HDL Direct 63 mg/dL; Magnesium 1.6 mg/dL (1.6-2.3); Triglycerides 102 mg/dL (<150)
[2023-01-31 20:40] LABS: Vitamin D 25 Hydroxy 48.3 ng/mL
[2023-01-31 20:42] LABS: Free T4 Free Thyroxine 1.85 ng/mL (0.78-2.19)
[2023-01-31 20:50] LABS: LDL Cholesterol Direct 66 mg/dL
[2023-01-31 21:11] LABS: Folic Acid > 20.0 ng/mL (2.76->20)
[2023-02-04 01:44] LABS: Thyroid Peroxidase Antibodies 62 IU/mL (<9)
[2023-02-04 16:53] LABS: Immunoglobulin A 408 mg/dL (70-320); TTG IGA AB <1.0 U/mL (<15.0)
[2023-02-05 17:38] LABS: Albumin 3.7 g/dL (3.8-4.8); Alpha 1 Globulin 0.3 g/dL (0.2-0.3); Alpha 2 Globulin 0.7 g/dL (0.5-0.9); Beta 1 Globulin 0.5 g/dL (0.4-0.6); Gamma Globulin 0.8 g/dL (0.8-1.7); Protein, Total 6.5 g/dL (6.1-8.1)
[2023-02-07 20:24] LABS: Creatinine, Random Urine 58 mg/dL (20-275); Total Protein/Creatinine Ratio 103 mg/g creat (24-184)
== END 2023-01-31 08:26 | disposition home or self-care (01) ==
LOC: ANHGOSHLAB 08:29
PROVIDERS: Internal Medicine; Nurse Practitioner Family; PCP Family Medicine
DX: E03.9 Hypothyroidism, unspecified (principal); I10 Essential (primary) hypertension; M85.80 Other specified disorders of bone density and structure, unspecified site; L65.9 Nonscarring hair loss, unspecified; E78.5 Hyperlipidemia, unspecified; E83.42 Hypomagnesemia
CPT/HCPCS: 36415; 80053; 80061; 82306; 82570; 82607; 82746; 82784; 83735; 83970; 84100; 84155; 84156; 84165; 84166; 84439; 84443; 85025; 86364; 86376

== ENCOUNTER 2023-02-06 10:17 | Outpatient (NON) | payer MEDICARE, SELFPAY ==
[2023-02-06 18:58] LABS: Creatinine Urine 28.5 mg/dL
[2023-02-07 10:33] LABS: Creatinine 24 Hour Urine 0.6 gm/24 (0.8-1.8); Total Volume 24 Hour Urine 2200 ml
[2023-02-08 15:54] LABS: Total Volume 2200
[2023-02-08 15:55] LABS: Urine Calcium 8.1
== END 2023-02-06 10:18 | disposition home or self-care (01) ==
LOC: ANHGOSHLAB 10:19
PROVIDERS: PCP Family Medicine; Visit Provider Internal Medicine
DX: M85.80 Other specified disorders of bone density and structure, unspecified site (principal); E03.9 Hypothyroidism, unspecified
CPT/HCPCS: 81050; 82340; 82570

== ENCOUNTER 2023-02-21 15:14 | Outpatient (CLI) | payer MEDICARE, SELFPAY ==
[2023-02-21 19:46] LABS: Alanine Aminotransferase 30 U/L (6-35); Albumin Level 4.5 g/dL (3.5-5.1); Alkaline Phosphatase 76 U/L (38-126); Anion Gap 0 mmol/L (8-16); Aspartate Amino Transferase 93 U/L (14-36); Bilirubin,Total 0.6 mg/dL (0.2-1.3); Blood Urea Nitrogen 19 mg/dL (7-17); Calcium 10.2 mg/dL (8.4-10.2); Carbon Dioxide 39 mmol/L (22-30); Chloride 96 mmol/L (98-107); Estimated Glomerular Filt Rate > 60; Glucose 112 mg/dL (65-110); Potassium 4.5 mmol/L (3.4-5.0); Sodium 135 mmol/L (137-145)
== END 2023-02-21 15:15 | disposition home or self-care (01) ==
LOC: ANHGOSHLAB 15:15
PROVIDERS: PCP Family Medicine; Visit Provider Family Medicine
DX: E87.6 Hypokalemia (principal); I10 Essential (primary) hypertension
CPT/HCPCS: 36415; 80053

== ENCOUNTER 2023-05-15 14:43 | Outpatient (CLI) | payer MEDICARE, SELFPAY ==
[2023-05-15 19:28] LABS: Alanine Aminotransferase 27 U/L (6-35); Albumin Level 4.2 g/dL (3.5-5.1); Alkaline Phosphatase 93 U/L (38-126); Anion Gap 5 mmol/L (8-16); Aspartate Amino Transferase 101 U/L (14-36); Bilirubin,Total 0.5 mg/dL (0.2-1.3); Blood Urea Nitrogen 19 mg/dL (7-17); Calcium 9.7 mg/dL (8.4-10.2); Carbon Dioxide 33 mmol/L (22-30); Chloride 93 mmol/L (98-107); Estimated Glomerular Filt Rate > 60; Glucose 115 mg/dL (65-110); Potassium 4.3 mmol/L (3.4-5.0); Sodium 131 mmol/L (137-145)
[2023-05-15 19:30] LABS: Alanine Aminotransferase 28 U/L (6-35); Albumin Level 4.2 g/dL (3.5-5.1); Alkaline Phosphatase 92 U/L (38-126); Aspartate Amino Transferase 113 U/L (14-36); Bilirubin,Total 0.5 mg/dL (0.2-1.3)
[2023-05-15 20:21] LABS: Free T4 Free Thyroxine 1.76 ng/mL (0.78-2.19)
== END 2023-05-15 14:44 | disposition home or self-care (01) ==
LOC: ANHGOSHLAB 14:44
PROVIDERS: Nurse Practitioner Family; PCP Family Medicine; Visit Provider Internal Medicine
DX: E03.9 Hypothyroidism, unspecified (principal); I10 Essential (primary) hypertension; R74.8 Abnormal levels of other serum enzymes
CPT/HCPCS: 36415; 80053; 80076; 84439; 84443; 87086; 87088

== ENCOUNTER 2023-05-15 19:44 | Outpatient (NON) | payer MEDICARE, SELFPAY | END 2023-05-15 19:45 | disposition home or self-care (01) | LOC: ANHLAB 19:44 | PROVIDERS: PCP Family Medicine; Visit Provider Family Medicine | DX: N39.0 Urinary tract infection, site not specified (principal) | CPT/HCPCS: 87086; 87088 ==

== ENCOUNTER 2023-07-08 09:13 | Outpatient (CLI) | payer MEDICARE, SELFPAY ==
[2023-07-08 19:23] LABS: Basophils Percent Auto 0.5 % (0.2-1.2); Eosinophils Absolute Auto 0.2 K/mm3 (0-0.3); Eosinophils Percent Auto 2.3 % (0-4.4); Hematocrit 44.1 % (37.0-47.0); Hemoglobin 13.6 g/dL (12.0-15.0); Immature Granulocyte Absolute 0.01 K/mm3 (0.00-0.031); Immature Granulocyte Percent A 0.1 % (0-0.5); Lymphocytes Absolute Auto 2.67 K/mm3 (0.9-3.2); Mean Corpuscular HGB Conc 30.8 g/dl (32-36); Mean Corpuscular Hemoglobin 29.8 pg (26-34); Mean Corpuscular Volume 96.7 fl (80-100); Mean Platelet Volume 10.4 fl (7.4-10.4); Monocytes Absolute Auto 0.7 K/mm3 (0.1-0.6); Monocytes Percent Auto 9.3 % (2.6-8.5); Neutrophils Absolute Auto 3.8 K/mm3 (1.3-6.7); Neutrophils Percent Auto 51.8 % (45.5-73.1); Platelet Count Result 264 k/mm3 (150-375); Red Blood Count 4.56 M/mm3 (4.2-5.4); Red Cell Distribution Width 12.5 % (11.5-14.5); White Blood Count 7.4 K/mm3 (4.5-10.0)
[2023-07-08 20:51] LABS: Vitamin D 25 Hydroxy 52.2 ng/mL
[2023-07-08 21:02] LABS: LDL Cholesterol Direct 66 mg/dL
[2023-07-08 21:17] LABS: Alanine Aminotransferase 24 U/L (6-35); Alkaline Phosphatase 89 U/L (38-126); Anion Gap 7 mmol/L (8-16); Aspartate Amino Transferase 97 U/L (14-36); Bilirubin,Total 0.5 mg/dL (0.2-1.3); Blood Urea Nitrogen 13 mg/dL (7-17); Calcium 9.8 mg/dL (8.4-10.2); Carbon Dioxide 31 mmol/L (22-30); Chloride 93 mmol/L (98-107); Cholesterol 153 mg/dL (0-200); Estimated Glomerular Filt Rate > 60; Glucose 78 mg/dL (65-110); HDL Direct 55 mg/dL; Magnesium 1.9 mg/dL (1.6-2.3); Sodium 131 mmol/L (137-145); Triglycerides 117 mg/dL (<150)
== END 2023-07-08 09:14 | disposition home or self-care (01) ==
LOC: ANHGOSHLAB 09:14
PROVIDERS: PCP Family Medicine; Visit Provider Family Medicine
DX: E53.8 Deficiency of other specified B group vitamins (principal); I10 Essential (primary) hypertension; E78.5 Hyperlipidemia, unspecified; Z86.73 Personal history of transient ischemic attack (TIA), and cerebral infarction without residual deficits; E03.9 Hypothyroidism, unspecified; E55.9 Vitamin D deficiency, unspecified; R73.9 Hyperglycemia, unspecified; Z00.00 Encounter for general adult medical examination without abnormal findings
CPT/HCPCS: 36415; 80053; 80061; 82306; 82607; 83036; 83735; 84443; 85025

== ENCOUNTER 2023-12-26 08:51 | Outpatient (CLI) | payer MEDICARE, SELFPAY ==
[2023-12-26 13:48] LABS: Hematocrit 44.2 % (37.0-47.0); Hemoglobin 13.9 g/dL (12.0-15.0); Mean Corpuscular HGB Conc 31.4 g/dl (32-36); Mean Corpuscular Hemoglobin 30.1 pg (26-34); Mean Corpuscular Volume 95.7 fl (80-100); Mean Platelet Volume 10.4 fl (7.4-10.4); Platelet Count Result 284 k/mm3 (150-375); Red Blood Count 4.62 M/mm3 (4.2-5.4); Red Cell Distribution Width 12.8 % (11.5-14.5); White Blood Count 8.7 K/mm3 (4.5-10.0)
[2023-12-26 14:21] LABS: Add Urine Microscopic? YES; Appearance Urine Cloudy (Clear); Bacteria Urine None Seen /hpf; Bilirubin Urine Negative (Negative); Blood Urine Non-Hemolyzed Trace (Negative); Color Urine Yellow (Yellow); Glucose Urine UA Negative (Negative); Ketones Urine Negative (Negative); Leukocyte Esterase Ur 2+ LEU/UL (Negative); Need Manual Microscopic Reviewed; Nitrate Urine Negative (Negative); Non Pathogenic Casts 0-2; Protein Urine Negative (Negative); Specific Grav Ur 1.011 (1.001-1.035); Squamous Epithelial Cell Urine Many /hpf (Few); Urobilinogen Urine 0.2 mg/dL (<2.0); WBC Urine 0-5 /hpf (0-3); pH Urine 7.5 (5.0-9.0)
[2023-12-26 17:22] LABS: Alanine Aminotransferase 21 U/L (6-35); Albumin Level 4.2 g/dL (3.5-5.1); Alkaline Phosphatase 86 U/L (38-126); Anion Gap 7 mmol/L (4-12); Aspartate Amino Transferase 74 U/L (14-36); Bilirubin,Total 0.6 mg/dL (0.2-1.3); Blood Urea Nitrogen 19 mg/dL (7-17); Calcium 9.4 mg/dL (8.4-10.2); Carbon Dioxide 28 mmol/L (22-30); Chloride 97 mmol/L (98-107); Cholesterol 148 mg/dL (0-200); Estimated Glomerular Filt Rate > 60; Glucose 69 mg/dL (65-110); HDL Direct 62 mg/dL; Potassium 4.1 mmol/L (3.4-5.0); Sodium 132 mmol/L (137-145); Triglycerides 112 mg/dL (<150)
[2023-12-26 17:33] LABS: LDL Cholesterol Direct 68 mg/dL
[2023-12-26 18:31] LABS: Vitamin D 25 Hydroxy 60.1 ng/mL
== END 2023-12-26 08:52 | disposition home or self-care (01) ==
LOC: ANHGOSHLAB 08:52
PROVIDERS: PCP Family Medicine; Visit Provider Nurse Practitioner
DX: I25.10 Atherosclerotic heart disease of native coronary artery without angina pectoris (principal); L65.9 Nonscarring hair loss, unspecified; E55.9 Vitamin D deficiency, unspecified; R30.0 Dysuria; Z00.00 Encounter for general adult medical examination without abnormal findings
CPT/HCPCS: 36415; 80053; 80061; 81001; 82306; 84443; 85027

== ENCOUNTER 2024-01-01 12:36 | Outpatient (CLI) | payer MEDICARE, SELFPAY | END 2024-01-01 12:37 | disposition home or self-care (01) | LOC: ANHGOSHLAB 12:37 | PROVIDERS: PCP Family Medicine; Visit Provider Nurse Practitioner | DX: R82.90 Unspecified abnormal findings in urine (principal) | CPT/HCPCS: 87086 ==

== ENCOUNTER 2024-01-14 14:19 | Outpatient (CLI) | payer MEDICARE, SELFPAY ==
--- NOTE | ~2024-01-14 | XR_ITS ---
Left Knee Technique: AP, lateral, and sunrise views were obtained. Clinical History: Pain Findings: No fracture or dislocation is seen. Osseous alignment is anatomic. Joint there is mild tric ompartmental degenerative change. Chondrocalcinosis of the menisci noted. Possible small loose body i n suprapatellar region. No joint effusion is seen. Impression: Degenerative changes, as above. Chondrocalcinosis of the menisci. Reviewed, dictated and finalized at location M. Impression: Degenerative changes, as above. Chondrocalcinosis of the menisci.
== END 2024-01-14 14:20 ==
LOC: GOSHIMG 14:20
PROVIDERS: PCP Family Medicine; Visit Provider Nurse Practitioner
DX: M17.12 Unilateral primary osteoarthritis, left knee (principal)
CPT/HCPCS: 73562

== ENCOUNTER 2024-07-06 09:26 | Outpatient (CLI) | payer MEDICARE, SELFPAY ==
[2024-07-06 14:04] LABS: Alanine Aminotransferase 23 U/L (6-35); Alkaline Phosphatase 75 U/L (38-126); Anion Gap 1 mmol/L (4-12); Aspartate Amino Transferase 110 U/L (14-36); Bilirubin,Total 0.7 mg/dL (0.2-1.3); Blood Urea Nitrogen 13 mg/dL (7-17); Calcium 9.1 mg/dL (8.4-10.2); Carbon Dioxide 34 mmol/L (22-30); Chloride 95 mmol/L (98-107); Cholesterol 149 mg/dL (0-200); Estimated Glomerular Filt Rate > 60; Glucose 73 mg/dL (65-110); HDL Direct 61 mg/dL; Magnesium 1.8 mg/dL (1.6-2.3); Potassium 3.8 mmol/L (3.4-5.0); Sodium 130 mmol/L (137-145); Triglycerides 97 mg/dL (<150)
[2024-07-06 14:10] LABS: Basophils Percent Auto 0.4 % (0.2-1.2); Eosinophils Absolute Auto 0.3 K/mm3 (0-0.3); Eosinophils Percent Auto 3.7 % (0-4.4); Hematocrit 42.6 % (37.0-47.0); Hemoglobin 13.6 g/dL (12.0-15.0); Immature Granulocyte Absolute 0.03 K/mm3 (0.00-0.031); Immature Granulocyte Percent A 0.4 % (0-0.5); Lymphocytes Absolute Auto 2.63 K/mm3 (0.9-3.2); Lymphocytes Percent Auto 31.3 % (18.3-44.2); Mean Corpuscular HGB Conc 31.9 g/dl (32-36); Mean Corpuscular Hemoglobin 30.6 pg (26-34); Mean Corpuscular Volume 95.9 fl (80-100); Mean Platelet Volume 10.3 fl (7.4-10.4); Monocytes Absolute Auto 0.8 K/mm3 (0.1-0.6); Monocytes Percent Auto 9.7 % (2.6-8.5); Neutrophils Absolute Auto 4.6 K/mm3 (1.3-6.7); Neutrophils Percent Auto 54.5 % (45.5-73.1); Nucleated Red Blood Cells Perc 0.4 % (0.0-0.2); Platelet Count Result 257 k/mm3 (150-375); Red Blood Count 4.44 M/mm3 (4.2-5.4); Red Cell Distribution Width 12.6 % (11.5-14.5); White Blood Count 8.4 K/mm3 (4.5-10.0)
[2024-07-06 14:15] LABS: LDL Cholesterol Direct 56 mg/dL
[2024-07-06 14:24] LABS: Vitamin D 25 Hydroxy 50.2 ng/mL
[2024-07-06 15:05] LABS: Hemoglobin A1C 5.5 % (<5.7)
[2024-07-06 16:58] LABS: Total Triiodothyronine (T3) 1.06 NG/ML (0.97-1.69)
== END 2024-07-06 09:27 | disposition home or self-care (01) ==
LOC: ANHGOSHLAB 09:26
PROVIDERS: PCP Family Medicine; Visit Provider Family Medicine
DX: R73.9 Hyperglycemia, unspecified (principal); E78.5 Hyperlipidemia, unspecified; I10 Essential (primary) hypertension; I25.10 Atherosclerotic heart disease of native coronary artery without angina pectoris; E55.9 Vitamin D deficiency, unspecified; E53.8 Deficiency of other specified B group vitamins
CPT/HCPCS: 36415; 80053; 80061; 82306; 82607; 83036; 83735; 84439; 84443; 84480; 85025

== ENCOUNTER 2025-01-07 15:06 | Outpatient (CLI) | payer MEDICARE, SELFPAY ==
--- OUTSIDE RECORDS SUMMARY | 2025-01-07 15:39 | XMS_ITS | Clinical Summary ---
Author Organization [facility] Address [address], [address] [address] Phone Care Team Providers Care Firestop/Containment Worker Name Role Phone Emre Ruiz MD Primary Care Provider Allergies Active Allergy Reactions Criticality Noted Date Comments Codeine Vomiting 12/03/2017 This includes all pain killers Medications atenolol-chlorth alidone (TENORETIC) 50-25 MG Tablet 09/27/2017 Act manish clopidogrel (PLAVIX) 75 MG Tablet 09/27/2017 Active levothyroxine (SYNTHROID) 75 MCG Tablet 09/27/2017 Active Potassium Chloride ER (KLORCON) 20 MEQ Tablet Controlled Release 10/24/2017 Active pravastatin (PRAVACHOL) 40 MG Tablet 09/27/2017 Active Calcium Carb-Cholecalcif kathy (CALCIUM 600 + D PO) Take by mouth daily. Active aspirin EC 81 MG Tablet Delayed Response Take 81 mg by mouth daily. Active rifAXIMin (XIFAXAN) 550 MG Tablet Take 1 Tab by mouth 3 times daily. 30 Tab 12/03/2017 Active metroNIDAZOLE (FLAGYL) 500 MG Tablet Take 1 Tab by mouth 3 times daily. 30 Tab 04/08/2018 Active metroNIDAZOLE (FLAGYL) 500 MG Tablet Take 1 Tab by mouth 3 times daily. 30 Tab 07/16/2018 Active Family History Medical History Relation Name Comments Diabetes Brother 1 Emphysema Brother 2 Emphysema Brother 3 Emphysema Brother 4 Hypertension Father Stroke Father No Known Problems Mother Emphysema Sister Relation Name Status Comments Brother 1 Brother 2 Brother 3 Brother 4 Father Mother Sister Social History Tobacco Use Types Packs/Day Years Used Date Smoking Tobacco: Never Smokeless Tobacco: Never Alcohol Use Standard Drinks/Week Comments Yes 0 (1 standard drink = 0.6 oz pur e alcohol) rarely glass of wine Comments No Sex and Gender Information Value Date Recorded Sex Assigned at Not on file Legal Sex Female 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 Gender Identity Not on file Sexual Orientation Not on file Last Filed Vital Signs Vital Sign Reading Time Taken Comments Blood Pressure 132/82 12/03/2017 1:06 PM CDT Pulse 56 12/03/2017 1:06 PM CDT Temperature 36.6 C (97.8 F) 12/03/2017 1:06 PM CDT Respiratory Rate 18 12/03/2017 1:06 PM CDT Oxygen Saturation 97% 12/03/2017 1:06 PM CDT Inhaled Oxygen Concentration - - Weight 55.8 kg (123 lb) 12/03/2017 1:06 PM CDT Height 152.4 cm (5') 12/03/2017 1:06 PM CDT Body Mass Index 24.02 12/03/2017 1:06 PM CDT Plan of Treatment Health Maintenance Due Date Last Done Comments DEXA Bone Density 1935 Hepatitis C Virus (HCV) Screening 1935 TdaP Immunization 1935 Pneumococcal Immunization (5 0+ years) (1 of 1 - PCV) 1987 Zoster Immunization (1 of 2) 1987 Respiratory Syncytial Virus (RSV) Immunization (Adult) (1 - 1-dose 75+ series) 2012 Influenza Immunization (#1) 2024 06/10/2017 SARS-COV-2 Immunization ( season) 2024 06/23/2021, 11/03/2020, 10/05/2020 Hepatitis B Immunization Aged Out No longer eligible based on patient's age to complete this topic Meningococcal Immunization (ACWY) Aged Out No longer eligible b ased on patient's age to complete this topic Rotavirus Immunization Aged Out No lo nger eligible based on patient's age to complete this topic [place] [address] MEDICARE C [employer] on file Care Teams Firestop/Containment Worker Relationship Specialty Start Date End Date Emre Ruiz MD PCP - General Family Medicine 07/11/17
[2025-01-07 22:18] LABS: Alanine Aminotransferase 62 U/L (6-35); Albumin Level 4.2 g/dL (3.5-5.1); Alkaline Phosphatase 116 U/L (38-126); Anion Gap 6 mmol/L (4-12); Aspartate Amino Transferase 108 U/L (14-36); Bilirubin,Total 0.5 mg/dL (0.2-1.3); Blood Urea Nitrogen 24 mg/dL (7-17); Calcium 10.4 mg/dL (8.4-10.2); Carbon Dioxide 32 mmol/L (22-30); Chloride 95 mmol/L (98-107); Estimated Glomerular Filt Rate > 60; Glucose 82 mg/dL (65-110); Potassium 5.1 mmol/L (3.4-5.0); Sodium 133 mmol/L (137-145); Total Protein 7.5 g/dL (6.3-8.2)
[2025-01-07 22:24] LABS: Free T4 Free Thyroxine 1.27 ng/dL (0.78-2.19)
== END 2025-01-07 15:07 | disposition home or self-care (01) ==
LOC: ANHGOSHLAB 15:06
PROVIDERS: PCP Family Medicine; Visit Provider Family Medicine
DX: E03.9 Hypothyroidism, unspecified (principal); E87.6 Hypokalemia
CPT/HCPCS: 36415; 80053; 84439; 84443

== ENCOUNTER 2025-02-01 14:16 | Outpatient (CLI) | payer MEDICARE, SELFPAY ==
--- OUTSIDE RECORDS SUMMARY | 2025-02-01 14:29 | XMS_ITS | Referral Summary ---
Author Organization [facility] Address [address] [place] [address] Care Team Providers Care Customer Retention Representative Name Role Phone Emre Ruiz MD Primary Care Provider Allergies Active Allergy Reactions Criticality Noted Date Comments Codeine Nausea & Vomiting Low 12/03/2017 This includes all pain killers Medications levothyroxine (SYNTHROID) 75 mcg tablet Take 1 tablet (75 mcg total) by mouth daily 1 Active potassium chloride ER 20 mEq CR tablet Take 1 tablet (20 mEq total) by mouth daily 1 Active pravastatin (PRAVACHOL) 40 mg tablet Take 1 tablet (40 mg total) by mouth daily 1 Active clopidogreL (PLAVIX) 75 mg tablet Take 1 tablet (75 mg total) by mouth daily 1 Active Premarin vaginal cream INSERT ONE GRAM VAGINALLY TWICE WEEKLY 1 Active magnesium oxide (MAG-OX) 400 mg (241.3 mg elemental magnesium) tabletIndication s:hypomagnesemia Take 1 tablet (400 mg total) by mouth daily Active calcium carbonate-vitami n D3 1,500 mg (600mg elemental) -800 unit per tablet Take 1 tablet by mouth daily Active therapeutic multivitamin (THERA) tabletIndication s:Vitamin Deficiency Prevention Take 1 tablet by mouth daily Active aspirin 81 mg enteric coated tablet Take 1 tablet (81 mg total) by mouth daily Active benzonatate (TESSALON) 200 mg capsuleIndicatio ns:Acute cough Take 1 capsule (200 mg total) by mouth 3 (three) times a day as needed for cough keep tessalon out of reach of children, especially children under the age of 10, due to possible serious risk such as if ingested by children under the age of 10. 30 capsule 3 Active Additional Information Patient not taking.Reported on 08/19/2024 atenoloL (TENORMIN) 50 mg tablet Take 1 tablet (50 mg total) by mouth daily 3 Active Active Problems Problem Noted Date Diagnosed Date Asymptomatic varicose veins 08/19/2024 Coronary artery disease invo lving [place] coronary artery of [place] heart without angina pectoris 08/14/2021 Mixed hyperlipidemia 08/14/2021 Essential hypertension 08/14/2021 Social History Tobacco Use Types Packs/Day Years Used Date Smoking Tobacco: Never Smokeless Tobacco: Never Tobacco Cessation:Counseling Given: Not Answered AUDIT-C Answer Date Recorded Q1: How often do you have a drink containing alc ohol? 2-4 times a month 03/01/2021 Q2: How many drinks containi ng alcohol do you have on a typical day when you are drinking? 1 or 2 03/01/2021 Q3: How often do you have si x or more drinks on one occasion? Never 03/01/2021 Comments Unknown Sex and Gender Information Value Date Recorded Sex Assigned at Not on file Legal Sex Female 10:57 PM MOTEL MAID Gender Identity Not on file Sexual Orientation Not on file Last Filed Vital Signs Vital Sign Reading Time Taken Comments Blood Pressure 134/62 08/19/2024 1:58 PM MOTEL MAID Pulse 73 08/19/2024 1:58 PM MOTEL MAID Temperature 36.7 C (98.1 F) 10/26/2023 12:00 PM CDT Respiratory Rate 20 10/26/2023 12:00 PM CDT Oxygen Saturation 95% 08/19/2024 1:58 PM MOTEL MAID Inhaled Oxygen Concentration - - Weight 55.3 kg (122 lb) 08/19/2024 1:58 PM MOTEL MAID Height 152.4 cm (5') 08/19/2024 1:58 PM MOTEL MAID Body Mass Index 23.83 08/19/2024 1:58 PM MOTEL MAID Plan of Treatment Not on file Insurance [facility] UHC MEDICARE ADVANTAGE [place] [id number] Care Teams Customer Retention Representative Relationship Specialty Start Date End Date Emre Ruiz MD PCP - General Family Practice 02/22/21
--- OUTSIDE RECORDS SUMMARY | 2025-02-01 14:29 | XMS_ITS | Clinical Summary ---
Author Organization [facility] Address [address] [place] [address] Care Team Providers Care Sprayer Insecticide Name Role Phone Emre Ruiz MD Primary [...] veins 08/19/2024 Coronary artery disease invo lving [place] coronary artery of [place] heart without angina pectoris 08/14/2021 Mixed hyperlipidemia 08/14/2021 Essential hypertension 08/14/2021 Surgical History Surgery Date Site/Laterality Comments CORONARY ANGIOPLASTY CARDIAC CATHETERIZATION Medical History Medical History Date Comments Hypertension Hyperlipidemia Stroke (HCC) Cataracts, bilateral Family History Medical History Relation Name Comments COPD Brother 1 COPD Brother 2 COPD Brother 3 COPD Brother 4 Hypertension Father Stroke Father old age Mother COPD Sister 1 COPD Sister 2 Relation Name Status Comments Brother 1 (Age 70s) Brother 2 (Age 70s) Brother 3 (Age 70s) Brother 4 (Age 70s) Father (Age 85) Mother (Age 100) Sister 1 (Age 70s) Sister 2 (Age 70s) Social History Tobacco Use Types Packs/Day Years [...] on file Legal Sex Female 10:57 PM PATIENT LIAISON Gender Identity Not on file Sexual Orientation Not on file Obstetrics History Last Filed Vital Signs Vital Sign Reading Time Taken Comments Blood Pressure 134/62 08/19/2024 1:58 PM PATIENT LIAISON Pulse 73 08/19/2024 1:58 PM PATIENT LIAISON Temperature 36.7 C (98.1 F) 10/26/2023 12:00 PM CDT Respiratory Rate 20 10/26/2023 12:00 PM CDT Oxygen Saturation 95% 08/19/2024 1:58 PM PATIENT LIAISON Inhaled Oxygen Concentration - - Weight 55.3 kg (122 lb) 08/19/2024 1:58 PM PATIENT LIAISON Height 152.4 cm (5') 08/19/2024 1:58 PM PATIENT LIAISON Body Mass Index 23.83 08/19/2024 1:58 PM PATIENT LIAISON Plan of Treatment Health Maintenance Due Date Last Done Comments Depression Screening 1935 Fall Risk Assessment 1935 Osteoporosis Screening-Bone Density Scan 1935 Hepatitis B Screening 1955 Zoster Vaccine (1 of 2) 1987 Well Visit 65+ 2002 Pneumococcal vaccine 65+ (2 of 2 - PCV) 05/25/2021 05/25/2020 Influenza Vaccine (Season Ended) 2025 05/05/2020, 05/15/2019, 05/06/2018, Additional history exists DTaP/Tdap/Td Vaccine (2 - Td or Tdap) 05/05/2030 05/05/2020 [facility] Address: [facility] [address] [place] [address] [facility] HMO REF [facility] MEDICARE ADVANTAGE Care Teams Sprayer Insecticide Relationship Specialty Start Date End Date Emre Ruiz MD PCP - General Family Practice 02/22/21
--- OUTSIDE RECORDS SUMMARY | 2025-02-01 14:29 | XMS_ITS | Clinical Summary ---
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
[2025-02-01 18:28] LABS: Hematocrit 40.8 % (37.0-47.0); Mean Corpuscular HGB Conc 31.9 g/dl (32-36); Mean Corpuscular Hemoglobin 30.2 pg (26-34); Mean Corpuscular Volume 94.7 fl (80-100); Mean Platelet Volume 9.8 fl (7.4-10.4); Platelet Count Result 257 k/mm3 (150-375); Red Blood Count 4.31 M/mm3 (4.2-5.4); Red Cell Distribution Width 12.4 % (11.5-14.5); White Blood Count 8.2 K/mm3 (4.5-10.0)
[2025-02-01 18:53] LABS: Alanine Aminotransferase 25 U/L (6-35); Albumin Level 3.7 g/dL (3.5-5.1); Alkaline Phosphatase 75 U/L (38-126); Anion Gap 6 mmol/L (4-12); Aspartate Amino Transferase 72 U/L (14-36); Bilirubin,Total 0.3 mg/dL (0.2-1.3); Blood Urea Nitrogen 15 mg/dL (7-17); Calcium 9.6 mg/dL (8.4-10.2); Carbon Dioxide 32 mmol/L (22-30); Chloride 96 mmol/L (98-107); Estimated Glomerular Filt Rate > 60; Glucose 120 mg/dL (65-110); Sodium 134 mmol/L (137-145); Total Protein 6.7 g/dL (6.3-8.2)
[2025-02-01 18:54] LABS: Iron 48 ug/dL (37-170)
[2025-02-01 19:04] LABS: Percent Iron Saturation 14 % (20-50)
[2025-02-01 19:12] LABS: Immunoglobulin G 831 mg/dL (700-1600)
[2025-02-01 19:23] LABS: Hepatitis B Surface Antigen Negative (Negative)
[2025-02-01 19:29] LABS: HAV RESULT Negative (Negative); Hepatitis B Core IgM Result Negative (Negative)
[2025-02-01 19:41] LABS: Hepatitis C Virus Antibody Negative (Negative)
[2025-02-04 23:53] LABS: Actin Antibody (IgG). 32 U (<20)
== END 2025-02-01 14:17 | disposition home or self-care (01) ==
LOC: ANHGOSHLAB 14:17
PROVIDERS: PCP Family Medicine; Visit Provider Nurse Practitioner
DX: R74.01 Elevation of levels of liver transaminase levels (principal); K74.60 Unspecified cirrhosis of liver; R74.8 Abnormal levels of other serum enzymes
CPT/HCPCS: 36415; 80053; 80074; 81596; 82104; 82728; 82784; 83520; 83540; 83550; 85027; 85610; 86038; 86364; 86376

== ENCOUNTER 2025-02-13 09:53 | Outpatient (CLI) | payer MEDICARE, SELFPAY ==
--- NOTE | ~2025-02-13 | US_ITS ---
Limited Abdominal Sonogram: Real-time sonographic imaging of the right upper quadrant was performed. Clinical History: Abnormal serum enzyme levels Findings: The liver appears normal with no evidence of mass lesion or bile duct dilatation. Main por arnel vein demonstrates normal direction of flow. The gallbladder is well distended, and appears normal with no evidence of gallstone or wall thickening. The common bile duct measures 6 mm. The visualize d pancreas, aorta, and IVC are unremarkable. Impression: No significant abnormality seen. Reviewed, dictated and finalized at location M. Impression: No significant abnormality seen.
--- OUTSIDE RECORDS SUMMARY | 2025-02-13 09:59 | XMS_ITS | Clinical Summary ---
Author Organization [facility] Address [address] [facility] [place] [address] Care Team Providers Care Networking Technician Name Role Phone Emre Ruiz MD Primary [...] veins 08/19/2024 Coronary artery disease invo lving [place] coronary artery of [place] heart without angina pectoris 08/14/2021 Mixed hyperlipidemia [...] on file Legal Sex Female 10:57 PM SOLAR MECHANICAL ENGINEER Gender Identity Not on file Sexual Orientation Not on file Obstetrics History Last Filed Vital Signs Vital Sign Reading Time Taken Comments Blood Pressure 134/62 08/19/2024 1:58 PM SOLAR MECHANICAL ENGINEER Pulse 73 08/19/2024 1:58 PM SOLAR MECHANICAL ENGINEER Temperature 36.7 C (98.1 F) 10/26/2023 12:00 PM CDT Respiratory Rate 20 10/26/2023 12:00 PM CDT Oxygen Saturation 95% 08/19/2024 1:58 PM SOLAR MECHANICAL ENGINEER Inhaled Oxygen Concentration - - Weight 55.3 kg (122 lb) 08/19/2024 1:58 PM SOLAR MECHANICAL ENGINEER Height 152.4 cm (5') 08/19/2024 1:58 PM SOLAR MECHANICAL ENGINEER Body Mass Index 23.83 08/19/2024 1:58 PM SOLAR MECHANICAL ENGINEER Plan of Treatment Health Maintenance Due Date [...] - Td or Tdap) 05/05/2030 05/05/2020 Insurance [facility] REF [facility] MEDICARE Address: [facility] [address] [place] [address] [facility] H[facility] REF [facility] MEDICARE ADVANTAGE Care Teams Networking Technician Relationship Specialty Start Date End Date Emre Ruiz MD PCP - General Family Practice 02/22/21
--- OUTSIDE RECORDS SUMMARY | 2025-02-13 09:59 | XMS_ITS | Referral Summary ---
Author Organization [facility] Address [address] [address] [facility] [place] [address] Care Team Providers Care Sales Project Coordinator Name Role Phone Emre Ruiz MD Primary [...] veins 08/19/2024 Coronary artery disease invo lving [place] coronary artery of [place] heart without angina pectoris 08/14/2021 Mixed hyperlipidemia [...] on file Legal Sex Female 10:57 PM INTERIOR HORTICULTURIST Gender Identity Not on file Sexual Orientation Not on file Last Filed Vital Signs Vital Sign Reading Time Taken Comments Blood Pressure 134/62 08/19/2024 1:58 PM INTERIOR HORTICULTURIST Pulse 73 08/19/2024 1:58 PM INTERIOR HORTICULTURIST Temperature 36.7 C (98.1 F) 10/26/2023 12:00 PM CDT Respiratory Rate 20 10/26/2023 12:00 PM CDT Oxygen Saturation 95% 08/19/2024 1:58 PM INTERIOR HORTICULTURIST Inhaled Oxygen Concentration - - Weight 55.3 kg (122 lb) 08/19/2024 1:58 PM INTERIOR HORTICULTURIST Height 152.4 cm (5') 08/19/2024 1:58 PM INTERIOR HORTICULTURIST Body Mass Index 23.83 08/19/2024 1:58 PM INTERIOR HORTICULTURIST Plan of Treatment Not on file [facility] MED[facility] Address: [address] [address] [place] [address] [facility] MEDIC[facility] Address: [address] [place] [address] UHC MEDICARE ADVANTAGE [facility] MEDICARE Address: [address] [address] [place] [phone] Care Teams Sales Project Coordinator Relationship Specialty Start Date End Date Emre Ruiz MD PCP - General Family Practice 02/22/21
--- OUTSIDE RECORDS SUMMARY | 2025-02-13 09:59 | XMS_ITS | Clinical Summary ---
Author Organization [facility] Address [address], [address] [address] Phone Care Team Providers Care Interior Design Consultant Name Role Phone Emre Ruiz MD Primary [...] 40 MG Tablet 09/27/2017 Active Calcium Carb-Cholecalcif ktahy (CALCIUM 600 + D PO) Take by [...] on file Legal Sex Female 9:31 AM NETWORK/TELECOM ENGINEER Gender Identity Not on file Sexual [...] patient's age [place] this [place] [address] MEDICARE C [employer] on file Care Teams Interior Design Consultant Relationship Specialty Start Date End Date Emre Ruiz MD PCP - General Family Medicine 07/11/17
== END 2025-02-13 09:54 | disposition home or self-care (01) ==
PROVIDERS: PCP Family Medicine; Visit Provider Nurse Practitioner
DX: R74.8 Abnormal levels of other serum enzymes (principal)
CPT/HCPCS: 76705

== ENCOUNTER 2025-03-10 11:10 | Outpatient (CLI) | payer MEDICARE, SELFPAY ==
--- OUTSIDE RECORDS SUMMARY | 2025-03-10 11:53 | XMS_ITS | Clinical Summary ---
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 Gender Identity Not on file Sexual Orientation Not on file Obstetrics History Last Filed Vital Signs Vital Sign Reading Time Taken Comments Blood Pressure 134/62 08/19/2024 1:58 PM DIRECTOR MEDICAL SURGICAL Pulse 73 08/19/2024 1:58 PM DIRECTOR MEDICAL SURGICAL Temperature 36.7 C (98.1 F) 10/26/2023 12:00 PM CDT Respiratory Rate 20 10/26/2023 12:00 PM CDT Oxygen Saturation 95% 08/19/2024 1:58 PM DIRECTOR MEDICAL SURGICAL Inhaled Oxygen Concentration - - Weight 55.3 kg (122 lb) 08/19/2024 1:58 PM DIRECTOR MEDICAL SURGICAL Height 152.4 cm (5') 08/19/2024 1:58 PM DIRECTOR MEDICAL SURGICAL Body Mass Index 23.83 08/19/2024 1:58 PM DIRECTOR MEDICAL SURGICAL Plan of Treatment Health Maintenance Due Date Last Done Comments Depression Screening 1935 Fall Risk Assessment 1935 Osteoporosis Screening-Bone Density Scan 1935 Hepatitis B Screening 1953 Zoster Vaccine (1 of 2) 1987 Well Visit 65+ 2002 Pneumococcal vaccine 65+ (2 of 2 - PCV) 05/25/2021 05/25/2020 Influenza Vaccine (#1) 2025 , 05/15/2019, 05/06/2018, Additional history exists DTaP/Tdap/Td Vaccine (2 - Td or Tdap) 05/05/2030 05/05/2020 Insurance [facility] Address: [facility] [address] [place] [address] [facility] [place] [address] [facility] MEDICARE ADVANTAGE Care Teams Corporate Wellness Coordinator Relationship Specialty Start Date End Date Emre Ruiz MD PCP - General Family Practice 02/22/21
--- OUTSIDE RECORDS SUMMARY | 2025-03-10 11:53 | XMS_ITS | Clinical Summary ---
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 Gender Identity Not on file Sexual Orientation [...] Health Maintenance Due Date Last Done Comments Hepatitis C Virus (HCV) Screening 1935 TdaP Immunization 1935 Pneumococcal Immunization (5 0+ years) (1 of 1 - PCV) 1987 Zoster Immunization (1 of 2) 1987 Respiratory Syncytial Virus (RSV) Immunization (Adult) (1 - 1-dose 75+ series) 2012 SARS-COV-2 Immunization ( - season) 2024 06/23/2021, 11/03/2020, 10/05/2020 Influenza Immunization (#1) 2025 06/10/2017 Hepatitis B Immunization Aged Out No longer eligible based on patient's age to complete this topic Human Papillomavirus (HPV) Immunization Aged Out No longer eligible b ased on patient's age to complete this topic Meningococcal Immunization (ACWY) Aged Out No longer eligible b ased on patient's age to complete this topic Rotavirus Immunization Aged Out No lo nger eligible based on patient's age to complete this topic Insurance MEDICARE C [employer] on file Care Teams Academic Coordinator Relationship Specialty Start Date End Date Emre Ruiz MD PCP - General Family Medicine 07/11/17
[2025-03-10 11:54] LABS: Alanine Aminotransferase 22 U/L (6-35); Albumin Level 4.2 g/dL (3.5-5.1); Alkaline Phosphatase 73 U/L (38-126); Aspartate Amino Transferase 43 U/L (14-36); Bilirubin,Total 0.4 mg/dL (0.2-1.3); Total Protein 7.2 g/dL (6.3-8.2)
== END 2025-03-10 11:11 | disposition home or self-care (01) ==
PROVIDERS: PCP Family Medicine; Visit Provider Nurse Practitioner
DX: R74.8 Abnormal levels of other serum enzymes (principal)
CPT/HCPCS: 36415; 80076

== ENCOUNTER 2025-06-03 14:19 | Outpatient (CLI) | payer MEDICARE, SELFPAY ==
--- OUTSIDE RECORDS SUMMARY | 2025-06-03 14:54 | XMS_ITS | Clinical Summary ---
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
--- OUTSIDE RECORDS SUMMARY | 2025-06-03 14:54 | XMS_ITS | Clinical Summary ---
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 Gender Identity Not on file Sexual Orientation Not on file Obstetrics History Last Filed Vital Signs Vital Sign Reading Time Taken Comments Blood Pressure 134/62 08/19/2024 1:58 PM SLOT OPERATIONS DIRECTOR Pulse 73 08/19/2024 1:58 PM SLOT OPERATIONS DIRECTOR Temperature 36.7 C (98.1 F) 10/26/2023 12:00 PM CDT Respiratory Rate 20 10/26/2023 12:00 PM CDT Oxygen Saturation 95% 08/19/2024 1:58 PM SLOT OPERATIONS DIRECTOR Inhaled Oxygen Concentration - - Weight 55.3 kg (122 lb) 08/19/2024 1:58 PM SLOT OPERATIONS DIRECTOR Height 152.4 cm (5') 08/19/2024 1:58 PM SLOT OPERATIONS DIRECTOR Body Mass Index 23.83 08/19/2024 1:58 PM SLOT OPERATIONS DIRECTOR Plan of Treatment Health Maintenance Due Date [...] - Td or Tdap) 05/05/2030 05/05/2020 Insurance [facility] [place] [address] [facility] [place] [address] [facility] MEDICARE ADVANTAGE Care Teams Towboat Engineer Relationship Specialty Start Date End Date Emre Ruiz MD PCP - General Family Practice 02/22/21
[2025-06-03 19:09] LABS: Alanine Aminotransferase 21 U/L (6-35); Albumin Level 3.7 g/dL (3.5-5.1); Alkaline Phosphatase 78 U/L (38-126); Aspartate Amino Transferase 106 U/L (14-36); Bilirubin,Total 0.3 mg/dL (0.2-1.3); Total Protein 6.6 g/dL (6.3-8.2)
== END 2025-06-03 14:20 | disposition home or self-care (01) ==
LOC: ANHGOSHLAB 14:20
PROVIDERS: PCP Family Medicine; Visit Provider Nurse Practitioner
DX: R74.8 Abnormal levels of other serum enzymes (principal)
CPT/HCPCS: 36415; 80076

== ENCOUNTER 2025-06-18 12:52 | Outpatient (CLI) | payer MEDICARE, SELFPAY ==
--- NOTE | ~2025-06-18 | DEXA_ITS ---
Bone Density Report Name: CHEYENNE PATEL Age: 89 Sex: Female Ethnicity: White Date of : 1935 Indication: osteopenia; parental hip fracture; height loss; Referring Provider: BONNIE GATES Study: Bone densitometry was performed. Exam Date: June 18, 2025 Accession number: [id number] Bone Density: Region BMD T-score Z-score Classification AP Spine(L1-L4) 0.932 -1.0 1.8 Normal Femoral Neck (Left) 0.609 -2.2 0.4 Osteopenia Total Hip (Left) 0.780 -1.3 1.0 Osteopenia Femoral Neck (Right) 0.627 -2.0 0.5 Osteopenia Total Hip (Right) 0.766 -1.4 0.9 Osteopenia Total Hip Mean 0.773 -1.4 1.0 Osteopenia World Health Organization criteria for BMD impression classify patients as: Normal (T-score at or above -1.0), Osteopenia (T-score between -1.0 and -2.5), or Osteoporosis (T-score at or below -2.5). 10-year Fracture Risk(1): Major Osteoporotic Fracture 28% Hip Fracture 19% Reported Risk Factors: [place] (), Neck BMD=0.609, BMI=25.9, parental fracture (1) FRAX(R) Version 3.08. Fracture probability calculated for an untreated patient. Fracture probability may be lower if the patient has received treatment. Previous Exams: Region Exam Age BMD T-score BMD Change BMD Change Date g/cm2 vs Baseline vs Previous AP Spine (L1-L4) 06/18/2025 89 0.932 -1.0 0.010 (1.0%) -0.012 (-1.2%) 07/20/2022 87 0.943 -0.9 0.021 (2.3%) 0.009 (1.0%) 07/14/2020 85 0.934 -1.0 0.012 (1.3%) 0.012 (1.3%) 11/21/2016 81 0.922 -1.1 Total Hip(Left) 06/18/2025 89 0.780 -1.3 -0.045 (-5.4%) 0.004 (0.5%) 07/20/2022 87 0.776 -1.4 -0.049 (-5.9%) -0.020 (-2.5%) 07/14/2020 85 0.796 -1.2 -0.029 (-3.5%) -0.029 (-3.5%) 11/21/2016 81 0.825 -1.0 Total Hip(Right) 06/18/2025 89 0.766 -1.4 -0.082 (-9.7%) 0.025 (3.3%) 07/20/2022 87 0.741 -1.6 -0.107 (-12.6% -0.077 (-9.4%) 07/14/2020 85 0.818 -1.0 -0.030 (-3.5%) -0.030 (-3.5%) 11/21/2016 81 0.848 -0.8 *Denotes significance at 95% confidence level, LSC for AP Spine = 0.022 g/cm2, LSC for Total Hip = 0.027 g/cm2 Clinical Information Provided by Patient: Parent has had a hip fracture Has used the following medications: HRT (i.e. estrogen/hormone therapy), Vitamin D, Calcium Patient maximum height was 60 Menopause Age: 52 Onset of menses at age 14 Number of children 2 Impression: The patient has low bone mass, based on the Left Femoral Neck T-score. The patient has an estimated ten-year risk of hip fracture of 19% and an estimated ten-year risk of major fracture of 28%, based on the WHO FRAX algorithm. The patient has risk factors, including: parental hip fracture. No significant bone loss was observed. Discussion: BONE DENSITY IS LOW AT ONE OR MORE SKELETAL SITES. THE PATIENT'S BMD AND CLINICAL RISK FACTORS CONTRIBUTE TO THIS PATIENT'S HIGH RISK OF FRACTURE. This patient's lowest T-score is low at one or more skeletal sites. It meets the World Health Organization's (WHO) criteria for ?low bone mass? (T-score between -1.0 and -2.5). The patient's 10-year risk of hip fracture and 10 year risk of a major osteoporotic fracture as calculated by FRAX exceeds the threshold where pharmacological therapy is recommended by the National Osteoporosis Foundation (NOF). However, all treatment decisions require clinical judgment and consideration of individual patient factors, including patient preferences, comorbidities, previous drug use, risk factors not captured in the FRAX model (e.g., frailty, falls, vitamin D deficiency, increased bone turnover, interval significant decline in bone density) and possible under or overestimation of fracture risk by FRAX. The patient should follow a healthful lifestyle (good nutrition with adequate calcium and vitamin D, and appropriate weight-bearing exercise). Follow-Up: Consider a repeat BMD and Vertebral Fracture Assessment (VFA) exam in 2 years or sooner if medically necessary, to reassess this patient's status. Reported by: SHANNA on 06/18/2025 1:34:00 PM. Reviewed, dictated and finalized at location A.
== END 2025-06-18 12:53 | disposition home or self-care (01) ==
LOC: ANHFOHIMG 12:53
PROVIDERS: PCP Family Medicine; Visit Provider Family Medicine
DX: Z78.0 Asymptomatic menopausal state (principal); M85.852 Other specified disorders of bone density and structure, left thigh; M85.851 Other specified disorders of bone density and structure, right thigh
CPT/HCPCS: 77080